=== PATIENT | female | born 1960 | race Caucasian/White ===

== ENCOUNTER 2017-12-17 17:35 | Inpatient (IN) | payer OTHER, MEDICARE ==
[~2017-12-17] VITALS: Ht 165.1 cm; Wt 62.0 kg
[~2017-12-17 17:35] MED LIST: ANAS1 PO; ATOR40TA16 PO; BUPR150T5 PO; CLON0.5T PO; ESCI20TA PO; LEVO75TA3 PO; LISI-519 PO; OMEP40CA2 PO
[2017-12-17 17:40] VITALS: BP 164/91; PULSE 89; RESP 18; TEMP 98; O2SAT 94
[2017-12-17] MEDS ORDERED: FENT75DI T-DERMAL (17:52)
[2017-12-17] MEDS ORDERED: ONDANSETRON HCL 4 MG/2 ML VIAL IV PUSH ONE (18:00)
[2017-12-17] MEDS ORDERED: SODIUM CHLOR 0.9% 250 ML INJ 250 ML IV ONE (18:00)
[2017-12-17 18:15] LABS: HEMATOCRIT 46.5 % (35.0-46.0); HEMOGLOBIN 16.1 GM/DL (11.6-15.3); MEAN CELL VOLUME 86.1 FL (80.0-100.0); MEAN CORPUSCULAR HEMOGLOBIN 29.9 PG (27.0-34.0); MEAN CORPUSCULAR HGB CONC 34.7 % (32.0-36.0); MEAN PLATELET VOLUME 7.6 FL (7.0-11.0); PLATELET COUNT 209 TH/MM3 (150-450); RED CELL DISTRIBUTION WIDTH 12.6 % (11.6-17.2); WHITE BLOOD COUNT 17.7 TH/MM3 (4.0-11.0)
--- NOTE | 2017-12-17 18:20 | PD ---
HPI Chief Complaint: GI Complaint Time Seen by Provider: 17:54 Travel History International Travel<30 days: No Contact w/Intl Traveler<30days: No Traveled to known affect area: No History of Present Illness HPI This is a 57-year-old female who presented to the ER complaining of nausea and vomiting since this afternoon. Patient denies any diarrhea there is no fever or chills or night sweats. Patient denies eating any unusual food and says that this afternoon she started feeling nauseated and started vomiting. Patient is on fentanyl patch every 3 days for chronic back pain. She denies any drugs or alcohol although reports smoking half a pack a day. vomitus is nonbloody nonbilious non projectile. Denies any abdominal pain no chest pain or shortness of breath. PFSH Past Medical History Anxiety: Yes Depression: Yes Cancer: Yes High Cholesterol: Yes GERD: Yes Hypertension: Yes Thyroid Disease: Yes Influenza Vaccination: No ?: Not Social History Alcohol Use: No Tobacco Use: Yes Substance Use: No Allergies-Medications (Allergen,Severity, Reaction): Coded Allergies: No Known Allergies (Unverified Adverse Reaction, Unknown, 12/17/17) Reported Meds & Prescriptions Reported Meds & Active Scripts Active Clonazepam 0.5 Mg Tab 0.5 Mg PO TID Atorvastatin (Atorvastatin Calcium) 40 Mg Tab 40 Mg PO HS Arimidex (Anastrozole) 1 Mg Tab 1 Mg PO DAILY Escitalopram (Escitalopram Oxalate) 20 Mg Tab 20 Mg PO DAILY Omeprazole 40 Mg Cap 40 Mg PO DAILY Lisinopril 5 Mg Tab 5 Mg PO DAILY Levothyroxine (Levothyroxine Sodium) 75 Mcg Tab 75 Mcg PO DAILY Bupropion HCl ER 12 HR (Bupropion HCl) 150 Mg Tab 150 Mg PO BID Reported Fentanyl Patch 72 HR (Fentanyl) 75 Mcg/Hr Patch 75 Mcg T-DERMAL Q72H Remove old patch when new one placed. Review of Systems Except as stated in HPI: all other systems reviewed are Neg Physical Exam Narrative GENERAL: Alert and oriented 3 no acute distress. SKIN: Focused skin assessment warm/dry. HEAD: Atraumatic. Normocephalic. EYES: Pupils equal and round. No scleral icterus. No injection or drainage. ENT: No nasal bleeding or discharge. Mucous membranes pink and moist. NECK: Trachea midline. No JVD. CARDIOVASCULAR: Regular rate and rhythm. No murmur appreciated. RESPIRATORY: No accessory muscle use. Clear to auscultation. Breath sounds equal bilaterally. GASTROINTESTINAL: Abdomen soft, non-tender, nondistended. Hepatic and splenic margins not palpable. MUSCULOSKELETAL: No obvious deformities. No clubbing. No cyanosis. No edema. NEUROLOGICAL: Awake and alert. No obvious cranial nerve deficits. Motor grossly within normal limits. Normal speech. PSYCHIATRIC: Appropriate mood and affect; insight and judgment normal. Data Data Last Documented VS Vital Signs Date Time Temp Pulse Resp B/P (MAP) Pulse Ox O2 Delivery O2 Flow Rate FiO2 12/17/17 17:40 98.0 89 18 164/91 (115) 94 Orders Orders Complete Blood Count With Diff (12/17/17 17:54) Comprehensive Metabolic Panel (12/17/17 17:54) Urinalysis - C+S If Indicated (12/17/17 17:54) Ondansetron Inj (Zofran Inj) (12/17/17 18:00) Sodium Chlor 0.9% 250 Ml Inj (Ns 250 Ml (12/17/17 18:00) Ct Abd/Pel W Iv Contrast(Rout) (12/17/17 ) Labs Laboratory Tests Test 12/17/17 18:04 12/17/17 18:32 White Blood Count 17.7 TH/MM3 Red Blood Count 5.40 MIL/MM3 Hemoglobin 16.1 GM/DL Hematocrit 46.5 % Mean Corpuscular Volume 86.1 FL Mean Corpuscular Hemoglobin 29.9 PG Mean Corpuscular Hemoglobin Concent 34.7 % Red Cell Distribution Width 12.6 % Platelet Count 209 TH/MM3 Mean Platelet Volume 7.6 FL CBC Comment AUTO DIFF Differential Total Cells Counted 100 Neutrophils % (Manual) 79 % Band Neutrophils % 9 % Lymphocytes % 5 % Monocytes % 7 % Neutrophils # (Manual) 15.6 TH/MM3 Differential Comment FINAL DIFF MANUAL Platelet Estimate NORMAL Platelet Morphology Comment NORMAL Blood Urea Nitrogen 11 MG/DL Creatinine 0.84 MG/DL Random Glucose 133 MG/DL Total Protein 8.3 GM/DL Albumin 3.7 GM/DL Calcium Level 8.7 MG/DL Alkaline Phosphatase 138 U/L Aspartate Amino Transf (AST/SGOT) 16 U/L Alanine Aminotransferase (ALT/SGPT) 13 U/L Total Bilirubin 0.5 MG/DL Sodium Level 136 MEQ/L Potassium Level 3.4 MEQ/L Chloride Level 100 MEQ/L Carbon Dioxide Level 26.8 MEQ/L Anion Gap 9 MEQ/L Estimat Glomerular Filtration Rate 70 ML/MIN Urine Color YELLOW Urine Turbidity CLEAR Urine pH 5.0 Urine Specific [place] 1.020 Urine Protein TRACE mg/dL Urine Glucose (UA) NEG mg/dL Urine Ketones NEG mg/dL Urine Occult Blood MOD Urine Nitrite NEG Urine Bilirubin NEG Urine Urobilinogen 0.2 MG/DL Urine Leukocyte Esterase NEG MDM Medical Decision Making Medical Screen Exam Complete: Yes Emergency Medical Condition: Yes Differential Diagnosis Gastroenteritis, opiates withdrawal. Narrative Course Pending PET scan will be signed to the next shift. Pending disposition. Diagnosis Primary Impression: Abdominal pain Condition: Stable Gigi Fernnado MD Dec 17, 2017 18:20
[2017-12-17 18:25] LABS: CHLORIDE 100 MEQ/L (98-107); SODIUM (NA) 136 MEQ/L (136-145)
[2017-12-17 18:28] LABS: ALBUMIN 3.7 GM/DL (3.4-5.0); BICARBONATE 26.8 MEQ/L (21.0-32.0); BLOOD UREA NITROGEN 11 MG/DL (7-18); CALCIUM 8.7 MG/DL (8.5-10.1); GLUCOSE,RANDOM 133 MG/DL (74-106)
[2017-12-17 18:31] LABS: ALT (GPT) 13 U/L (10-53); AST (GOT) 16 U/L (15-37); CREATININE 0.84 MG/DL (0.50-1.00); GLOMERULAR FILTRATION RATE 70 ML/MIN (>89)
[2017-12-17 18:33] LABS: TOTAL BILIRUBIN ADULT 0.5 MG/DL (0.2-1.0); TOTAL PROTEIN 8.3 GM/DL (6.4-8.2)
[2017-12-17 18:34] LABS: ALKALINE PHOSPHATASE 138 U/L (45-117)
[2017-12-17 18:48] LABS: BANDS 9 % (0-6); LYMPHOCYTES 5 % (9-44); MONOCYTES 7 % (0-8); NEUTROPHIL # MANUAL DIFF 15.6 TH/MM3 (1.8-7.7); POLYS (SEG NEUTROPHILS) 79 % (16-70)
[2017-12-17 18:48] LABS: BILIRUBIN, URINE NEG (NEG); BLOOD, URINE MOD (NEG); GLUCOSE,URINE NEG (NEG); KETONE, URINE NEG (NEG); NITRITE,URINE NEG (NEG); URINE COLOR YELLOW (YELLW/STRAW); URINE LEUKOCYTE ESTERASE NEG (NEG)
[2017-12-17 18:52] LABS: BACTERIA, URINE FEW /hpf; SQUAMOUS EPITHELIAL CELL URINE > 8 /hpf (0-5)
[2017-12-17 19:05] VITALS: BP 163/88; PULSE 84; RESP 20; O2SAT 90
[2017-12-17] MEDS ORDERED: IOHEXOL 350 MG/ML 10 ML VIAL (for RAD DIAG) IVCONTRAST ONE (19:18)
--- NOTE | 2017-12-17 19:30 | RADRPT ---
EXAM DATE/TIME: 12/17/2017 19:07 [facility] COMPARISON: No previous studies available for comparison. INDICATIONS : Nausea, vomiting. IV CONTRAST: 100 cc Omnipaque 350 (iohexol) IV ORAL CONTRAST: No oral contrast ingested. RADIATION DOSE: 7.75 CTDIvol (mGy) MEDICAL HISTORY : Gastroesophageal reflux disease. Hypertension. SURGICAL HISTORY : None. ENCOUNTER: Initial ACUITY: 1 day PAIN SCALE: 6/10 LOCATION: abdomen TECHNIQUE: Volumetric scanning of the abdomen and pelvis was performed. Using automated exposure control and ad justment of the mA and/or kV according to patient size, radiation dose was kept as low as reasonably achievable to obtain optimal diagnostic quality images. DICOM format image data is available electro nically for review and comparison. FINDINGS: LOWER LUNGS: 1.4 cm oval infiltrate with air bronchograms in the lower lateral right lung. No evidence of pleural effusion. Left lower lung is clear. LIVER: Homogeneous density to the liver. There is mild intrahepatic biliary ductal dilatation near the port a and the extrahepatic biliary system is dilated with the common hepatic duct measuring 1.4 cm and th e common bile duct measuring 1.3 cm, with dilation down to the distal common duct. There is a 1.3 cm peripherally calcified gallstone near the neck. The gallbladder is mildly distended without evidenc e of gallbladder wall thickening or pericholecystic fluid. SPLEEN: Normal size without lesion. PANCREAS: Within normal limits. KIDNEYS: Normal in size and shape. There is no mass, stone or hydronephrosis. ADRENAL GLANDS: Within normal limits. VASCULAR: There is no aortic aneurysm. BOWEL/MESENTERY: No dilated loops of small or large bowel was stopped moderate amount of stool in the rectum and dista l sigmoid colon. ABDOMINAL WALL: Within normal limits. RETROPERITONEUM: There is no lymphadenopathy. BLADDER: No wall thickening or mass. REPRODUCTIVE: Uterus is normal size. Mild amount of free fluid in the left adnexa free fluid in the cul-de-sac.. INGUINAL: There is no lymphadenopathy or hernia. MUSCULOSKELETAL: Mild curvature of the lumbar spine convex towards the left. No lytic lesions seen. CONCLUSION: 1. Abnormal appearance the biliary tree with intra-and extrahepatic biliary ductal dilatation and a 1 .4 cm calcified stone near the neck of the gallbladder. 2. Focal free fluid in the left adnexal region. 3. Moderate amount of stool in the rectum and sigmoid without dilated loops of small bowel. 4. Focal opacity in the lateral right lung does have some air bronchograms suggesting a focal infiltr ate. Sean Neves MD on December 17, 2017 at 19:22 Board Certified Radiologist. This report was verified electronically.
--- NOTE | 2017-12-17 19:34 | PD ---
Physical Exam Time Seen by Provider: 19:[address] Tanner if this patient with me to check the results of the CT scan and make a disposition. Data Data Last Documented VS Vital Signs Date Time Temp Pulse Resp B/P (MAP) Pulse Ox O2 Delivery O2 Flow Rate FiO2 12/17/17 17:40 98.0 89 18 164/91 (115) 94 Orders Orders Complete Blood Count With Diff (12/17/17 17:54) Comprehensive Metabolic Panel (12/17/17 17:54) Urinalysis - C+S If Indicated (12/17/17 17:54) Ondansetron Inj (Zofran Inj) (12/17/17 18:00) Sodium Chlor 0.9% 250 Ml Inj (Ns 250 Ml (12/17/17 18:00) Ct Abd/Pel W Iv Contrast(Rout) (12/17/17 ) Urine Culture (12/17/17 18:32) Iohexol 350 Inj (Omnipaque 350 Inj) (12/17/17 19:18) Piperacil-Tazo 3.375 Gm Premix (Zosyn 3. (12/17/17 19:45) Chest, Pa & Lat (12/17/17 19:44) Arterial Blood Gas (Abg) (12/17/17 19:44) Ondansetron Inj (Zofran Inj) (12/17/17 20:00) Morphine Inj (Morphine Inj) (12/17/17 20:00) Admit Order (Ed Use Only) (12/17/17 19:50) Labs Laboratory Tests Test 12/17/17 18:04 12/17/17 18:32 White Blood Count 17.7 TH/MM3 Red Blood Count 5.40 MIL/MM3 Hemoglobin 16.1 GM/DL Hematocrit 46.5 % Mean Corpuscular Volume 86.1 FL Mean Corpuscular Hemoglobin 29.9 PG Mean Corpuscular Hemoglobin Concent 34.7 % Red Cell Distribution Width 12.6 % Platelet Count 209 TH/MM3 Mean Platelet Volume 7.6 FL CBC Comment AUTO DIFF Differential Total Cells Counted 100 Neutrophils % (Manual) 79 % Band Neutrophils % 9 % Lymphocytes % 5 % Monocytes % 7 % Neutrophils # (Manual) 15.6 TH/MM3 Differential Comment FINAL DIFF MANUAL Platelet Estimate NORMAL Platelet Morphology Comment NORMAL Blood Urea Nitrogen 11 MG/DL Creatinine 0.84 MG/DL Random Glucose 133 MG/DL Total Protein 8.3 GM/DL Albumin 3.7 GM/DL Calcium Level 8.7 MG/DL Alkaline Phosphatase 138 U/L Aspartate Amino Transf (AST/SGOT) 16 U/L Alanine Aminotransferase (ALT/SGPT) 13 U/L Total Bilirubin 0.5 MG/DL Sodium Level 136 MEQ/L Potassium Level 3.4 MEQ/L Chloride Level 100 MEQ/L Carbon Dioxide Level 26.8 MEQ/L Anion Gap 9 MEQ/L Estimat Glomerular Filtration Rate 70 ML/MIN Urine Collection Type CLEAN CATCH Urine Color YELLOW Urine Turbidity CLEAR Urine pH 5.0 Urine Specific [place] 1.020 Urine Protein TRACE mg/dL Urine Glucose (UA) NEG mg/dL Urine Ketones NEG mg/dL Urine Occult Blood MOD Urine Nitrite NEG Urine Bilirubin NEG Urine Urobilinogen 0.2 MG/DL Urine Leukocyte Esterase NEG Urine RBC 4-9 /hpf Urine WBC 9-14 /hpf Urine Squamous Epithelial Cells > 8 /hpf Urine Bacteria FEW /hpf Microscopic Urinalysis Comment CULTURE INDICATED Urine Collection Time 18:32 MDM Medical Record Reviewed: Yes Supervised Visit with JAI: No Interpretation(s) The CT abdomen/pelvis with IV contrast shows abnormal appearance of the biliary tree with intra-and extra hepatic biliary ductal dilatation and a 1.4 calcified stone near the neck of the gallbladder. Also noted is focal free fluid in the left adnexal region and moderate amount of stool in the rectum and sigmoid without dilated loops of small bowel and a focal opacity in the lateral right lung with air bronchograms suggesting a focal infiltrate. The CBC shows a white count of 17,700 with a hemoglobin of 16.1 and hematocrit of 46.5 with 79 polys and 9 bands. The complete metabolic profile shows a GFR of 70, glucose 133, total protein 8.3, alkaline phosphatase 138 with potassium of 3.4 but is otherwise unremarkable. Urinalysis shows moderate blood, 9-14 white cells with 4-9 red cells and few bacteria and culture is indicated. Differential Diagnosis Pneumonia, urinary tract infection, cholecystitis, cholelithiasis with colic, common duct stone, pancreatitis, electrolyte disorder, dehydration Narrative Course The CT scan suggest a common duct stone as well as possible pneumonia. The urine shows a urinary tract infection. She does have a leukocytosis. Most of her pain is in the right upper quadrant. Because of the patient's multiple problems, and the need for possible multiple consultations, the patient will be transferred to [facility]. Physician Communication Physician Communication I discussed the patient with Dr. Yennifer Franco and Dr. Basim Arreguin. The patient will be admitted to Dr. Puri of the [facility] and surgery will be consulting. Diagnosis Primary Impression: Common bile duct stone Additional Impressions: Right lower lobe pneumonia Urinary tract infection Admitting Information Admitting Physician Requests: Admit Condition: Stable Hank Christensen MD Dec 17, 2017 19:34
[2017-12-17] MEDS ORDERED: PIPERACIL-TAZO 3.375 GM PREMIX 50 ML IV ONE (19:45)
[2017-12-17 20:00] VITALS: BP 148/90; PULSE 82; RESP 20; O2SAT 98
[2017-12-17] MEDS: PIPERACIL-TAZO 4.5 GM PREMIX 100 ML IV SCH (20:00)
[2017-12-17] MEDS ORDERED: MAGNESIUM HYDROXIDE SUSP 30 ML CUP PO PRN (20:00)
[2017-12-17] MEDS ORDERED: MORPHINE SULFATE 4 MG/ML INJ IV PUSH ONE (20:00)
[2017-12-17] MEDS ORDERED: SENNOSIDES 8.6 MG TAB PO PRN (20:00)
[2017-12-17] MEDS ORDERED: ONDANSETRON HCL 4 MG/2 ML VIAL IV ONE (20:00)
[2017-12-17] MEDS ORDERED: NALOXONE HCL 0.4 MG/ML AMP IV PUSH PRN (20:00)
[2017-12-17] MEDS ORDERED: ACETAMINOPHEN 650 MG SUPP RECTAL PRN (20:00)
[2017-12-17] MEDS ORDERED: SODIUM CHLOR 0.9% 1000 ML INJ 1,000 ML IV SCH (20:00)
[2017-12-17] MEDS ORDERED: BISACODYL 10 MG SUPP RECTAL PRN (20:00)
[2017-12-17] MEDS ORDERED: MORPHINE SULFATE 2 MG/ML INJ IV PUSH PRN (20:15)
[2017-12-17] MEDS ORDERED: RESP: ALBUTEROL 2.5 MG/IPRATROPIUM 0.5 MG NEB (PRN) NEB (20:15)
[2017-12-17] MEDS: AZITHROMYCIN INJ 500 MG in SODIUM CHLOR 0.9% 250 ML INJ 250 ML IV SCH (20:24)
--- NOTE | 2017-12-17 20:32 | RADRPT ---
EXAM DATE/TIME: 12/17/2017 20:14 [facility] COMPARISON: No previous studies available for comparison. INDICATIONS : Shortness of breath MEDICAL HISTORY : Gastroesophageal reflux disease. Hypertension. SURGICAL HISTORY : None. ENCOUNTER: Initial ACUITY: 1 day PAIN SCORE: 0/10 LOCATION: Bilateral chest FINDINGS: PA and lateral views of the chest demonstrate the lungs to be symmetrically aerated without evidence of mass, infiltrate or effusion. No evidence of pneumothorax. The cardiomediastinal contours are unr emarkable. Deformity of the lower lateral right ribs suggest old rib fractures.. CONCLUSION: The lungs are clear. Sean Neves MD on December 17, 2017 at 20:30 Board Certified Radiologist. This report was verified electronically.
[2017-12-17 21:00] VITALS: BP 155/88; PULSE 88; RESP 20; O2SAT 95
[2017-12-17] MEDS ORDERED: buPROPion HCL 150 MG SUSTAINED RELEASE TAB PO SCH (21:00)
[2017-12-17 21:10] VITALS: O2SAT 94
[2017-12-17] MEDS: RESP: ALBUTEROL 2.5 MG/IPRATROPIUM 0.5 MG NEB (SCH) NEB (21:11)
[2017-12-17] MEDS: MORPHINE SULFATE 4 MG/ML INJ IV PUSH PRN (21:51)
[2017-12-17] MEDS: buPROPion HCL 150 MG SUSTAINED RELEASE TAB PO SCH (21:52)
[2017-12-17] MEDS: ATORVASTATIN 40 MG TAB PO SCH (21:53)
[2017-12-17 22:49] VITALS: BP 145/90
[2017-12-18] VITALS (15 sets, daily range): BP systolic 95–145; BP diastolic 55–87; PULSE 90–107; RESP 16–22; TEMP 97.8–100.6; O2SAT 90–95
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
[2017-12-18] MEDS ORDERED: HYDROmorphone HCL PF 2 MG/ML VIAL IV ONE (00:45)
[2017-12-18] MEDS: SODIUM CHLORIDE 0.9% FLUSH 10 ML FLUSH IV FLUSH SCH ×3 (01:00→21:00)
[2017-12-18] MEDS: PIPERACIL-TAZO 4.5 GM PREMIX 100 ML IV SCH ×4 (01:05→21:39)
[2017-12-18] MEDS: RESP: ALBUTEROL 2.5 MG/IPRATROPIUM 0.5 MG NEB (SCH) NEB ×4 (03:05→19:44)
[2017-12-18] MEDS ORDERED: ONDANSETRON HCL 4 MG/2 ML VIAL IV PUSH PRN (03:15)
[2017-12-18] MEDS: MORPHINE SULFATE 4 MG/ML INJ IV PUSH PRN ×4 (04:47→15:52)
[2017-12-18 05:26] LABS: AUTOMATED NEUTROPHIL # 23.9 TH/MM3 (1.8-7.7); BASOPHIL % 0.1 % (0.0-2.0); HEMATOCRIT 45.3 % (35.0-46.0); HEMOGLOBIN 15.5 GM/DL (11.6-15.3); LYMPH % 3.3 % (9.0-44.0); LYMPHOCYTE # 0.9 TH/MM3 (1.0-4.8); MEAN CELL VOLUME 85.4 FL (80.0-100.0); MEAN CORPUSCULAR HEMOGLOBIN 29.3 PG (27.0-34.0); MEAN CORPUSCULAR HGB CONC 34.3 % (32.0-36.0); MEAN PLATELET VOLUME 7.8 FL (7.0-11.0); MONOCYTE # 1.6 TH/MM3 (0-0.9); NEUT % 90.6 % (16.0-70.0); PLATELET COUNT 208 TH/MM3 (150-450); RED CELL DISTRIBUTION WIDTH 13.1 % (11.6-17.2); WHITE BLOOD COUNT 26.4 TH/MM3 (4.0-11.0)
[2017-12-18 05:52] LABS: ALBUMIN 3.3 GM/DL (3.4-5.0); ALT (GPT) 15 U/L (10-53); BICARBONATE 28.3 MEQ/L (21.0-32.0); BLOOD UREA NITROGEN 11 MG/DL (7-18); CALCIUM 8.7 MG/DL (8.5-10.1); CHLORIDE 98 MEQ/L (98-107); CREATININE 0.76 MG/DL (0.50-1.00); GLOMERULAR FILTRATION RATE 79 ML/MIN (>89); GLUCOSE,RANDOM 127 MG/DL (74-106); SODIUM (NA) 135 MEQ/L (136-145)
[2017-12-18 05:55] LABS: ALKALINE PHOSPHATASE 116 U/L (45-117); AST (GOT) 16 U/L (15-37); TOTAL PROTEIN 7.7 GM/DL (6.4-8.2)
[2017-12-18] MEDS: REMOVE OLD PATCH-FENTANYL T-DERMAL SCH (06:00)
[2017-12-18] MEDS: LEVOTHYROXINE SODIUM 75 MCG TAB PO SCH (06:06)
[2017-12-18] MEDS: fentaNYL 75 MCG/HR PATCH T-DERMAL SCH (06:16)
[2017-12-18] MEDS: LISINOPRIL 5 MG TAB PO SCH (08:27)
[2017-12-18] MEDS: buPROPion HCL 150 MG SUSTAINED RELEASE TAB PO SCH ×2 (08:27→21:37)
[2017-12-18] MEDS: ANASTROZOLE 1 MG TAB PO SCH (08:27)
[2017-12-18] MEDS: DOCUSATE SODIUM 100 MG CAP PO SCH ×2 (08:27→21:37)
[2017-12-18] MEDS: PANTOPRAZOLE SOD 40 MG DELAYED RELEASE TAB PO SCH (08:27)
[2017-12-18] MEDS: ESCITALOPRAM OXALATE 20 MG TAB PO SCH (08:28)
[2017-12-18] MEDS ORDERED: ACETAMINOPHEN 325 MG TAB PO PRN (08:45)
[2017-12-18] MEDS ORDERED: clonazePAM 0.5 MG TAB PO SCH (09:00)
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
[2017-12-18] MEDS: NS + KCL 20 MEQ INJ 1,000 ML IV SCH ×2 (09:37→18:41)
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
[2017-12-18] MEDS: SODIUM CHLORIDE 0.9% FLUSH 10 ML FLUSH IV FLUSH PRN (12:21)
[2017-12-18] MEDS ORDERED: LORazepam 2 MG/ML VIAL IV PUSH PRN (12:30)
[2017-12-18] MEDS ORDERED: POTASSIUM CHLORIDE 10 MEQ CONTROLLED RELEASE TAB PO ONE ×2 (15:30→19:00)
[2017-12-18] MEDS ORDERED: POTASSIUM CHLORIDE 20 MEQ CONTROLLED RELEASE TAB PO ONE (15:30)
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
--- NOTE | 2017-12-18 16:05 | RADRPT ---
EXAM DATE/TIME: 12/18/2017 15:10 [facility] COMPARISON: CT ABDOMEN & PELVIS W CONTRAST, December 17, 2017, 19:07. INDICATIONS : Abdominal pain. MEDICAL HISTORY : Hypertension. Carcinoma, breast. SURGICAL HISTORY : Hysterectomy. MASTECTOMY ENCOUNTER: Subsequent ACUITY: 2 day PAIN SCORE: 8/10 LOCATION: Bilateral upper quadrant ABDOMEN TECHNIQUE: Multiplanar, multisequence magnetic resonance imaging of the abdomen was performed. High-resolution 3D dataset was utilized to reconstruct maximum-intensity projection (MIP) images. FINDINGS: INTRAHEPATIC BILE DUCTS: There is some diffuse dilatation of the biliary tree. EXTRAHEPATIC BILE DUCTS: The common bile duct measures 1.3 cm. No stone or filling defect is identified. GALLBLADDER: There is a gallstone in the gallbladder. There is some thickening of the gallbladder wall. There is s ome nonspecific inflammatory changes along the base of the gallbladder. LIVER: Normal size and signal intensity. No concerning liver lesion is identified on this non-contrast exam. The liver is mildly prominent in size measuring 17 cm. PANCREAS: The main pancreatic duct is normal in size. There is no significant anatomical variant. Signal inte nsity is within normal limits. No mass is visualized on this non-contrast exam. OTHER: The remaining visualized structures demonstrate no acute abnormality on this non-contrast exam. CONCLUSION: 1. There is a gallstone in the base of the gallbladder. The gallbladder appears be somewhat dilated a nd there is thickening of the gallbladder wall with some nonspecific inflammatory changes in the mese nteric fat adjacent to the base of the gallbladder. Cholecystitis would be the primary consideration. 2. The common bile duct is dilated 1.3 cm. There is dilatation of the intrabiliary ducts. These findi ngs would indicate obstruction. Recommend ERCP for further evaluation. Boby Pastor MD on December 18, 2017 at 15:58 Board Certified Radiologist. This report was verified electronically.
[2017-12-18] MEDS: MAGNESIUM SULFATE 1 GM PREMIX 100 ML IV SCH ×2 (17:47→18:41)
[2017-12-18] MEDS ORDERED: NS + KCL 20 MEQ INJ 1,000 ML IV SCH (20:00)
[2017-12-18 21:35] LABS: INTERNATIONAL NORMALIZED RATIO 1.4 RATIO; PROTHROMBIN TIME - PATIENT 14.3 SEC (9.8-11.6)
[2017-12-18] MEDS: ATORVASTATIN 40 MG TAB PO SCH (21:37)
[2017-12-18] MEDS: AZITHROMYCIN INJ 500 MG in SODIUM CHLOR 0.9% 250 ML INJ 250 ML IV SCH (21:38)
[2017-12-19] VITALS (12 sets, daily range): BP systolic 92–161; BP diastolic 55–101; PULSE 90–98; RESP 17–18; TEMP 97–100.5; O2SAT 91–96
[2017-12-19] MEDS: NS + KCL 20 MEQ INJ 1,000 ML IV SCH ×3 (02:10→23:17)
[2017-12-19] MEDS: PIPERACIL-TAZO 4.5 GM PREMIX 100 ML IV SCH ×4 (02:10→21:36)
[2017-12-19] MEDS: RESP: ALBUTEROL 2.5 MG/IPRATROPIUM 0.5 MG NEB (SCH) NEB ×3 (03:21→21:47)
[2017-12-19] MEDS ORDERED: POVIDONE IODINE 5% (ANTISEPSIS KIT) 4 APPLICATIONS EACH NARE PRN (04:15)
[2017-12-19] MEDS ORDERED: LACTATED RINGER'S 1000 ML IV PRN (04:15)
[2017-12-19] MEDS ORDERED: SODIUM CHLORID 0.9% 500 ML IV PRN (04:15)
[2017-12-19] MEDS ORDERED: CHLORHEXIDINE GLUCONATE 2 % 1 PACK (2 CLOTHS) TOPICAL PRN (04:15)
[2017-12-19] MEDS: LEVOTHYROXINE SODIUM 75 MCG TAB PO SCH (06:11)
[2017-12-19] MEDS: MORPHINE SULFATE 4 MG/ML INJ IV PUSH PRN ×4 (07:47→21:38)
[2017-12-19] MEDS: SODIUM CHLORIDE 0.9% FLUSH 10 ML FLUSH IV FLUSH SCH ×2 (07:57→20:27)
[2017-12-19] MEDS: PANTOPRAZOLE SOD 40 MG DELAYED RELEASE TAB PO SCH (07:57)
[2017-12-19] MEDS: DOCUSATE SODIUM 100 MG CAP PO SCH (07:57)
[2017-12-19] MEDS: ESCITALOPRAM OXALATE 20 MG TAB PO SCH (07:57)
[2017-12-19] MEDS: buPROPion HCL 150 MG SUSTAINED RELEASE TAB PO SCH ×2 (07:57→20:26)
[2017-12-19] MEDS: ANASTROZOLE 1 MG TAB PO SCH (07:57)
[2017-12-19] MEDS: LISINOPRIL 5 MG TAB PO SCH (07:58)
[2017-12-19 08:11] LABS: AUTOMATED NEUTROPHIL # 21.9 TH/MM3 (1.8-7.7); BASOPHIL % 0.1 % (0.0-2.0); HEMATOCRIT 40.1 % (35.0-46.0); HEMOGLOBIN 13.6 GM/DL (11.6-15.3); LYMPH % 3.2 % (9.0-44.0); LYMPHOCYTE # 0.8 TH/MM3 (1.0-4.8); MEAN CELL VOLUME 86.5 FL (80.0-100.0); MEAN CORPUSCULAR HEMOGLOBIN 29.3 PG (27.0-34.0); MEAN CORPUSCULAR HGB CONC 33.9 % (32.0-36.0); MONO % 5.8 % (0.0-8.0); MONOCYTE # 1.4 TH/MM3 (0-0.9); NEUT % 90.9 % (16.0-70.0); PLATELET COUNT 142 TH/MM3 (150-450); RED BLOOD COUNT 4.64 MIL/MM3 (4.00-5.30); RED CELL DISTRIBUTION WIDTH 12.8 % (11.6-17.2)
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
[2017-12-19 08:35] LABS: BICARBONATE 26.9 MEQ/L (21.0-32.0); CALCIUM 7.9 MG/DL (8.5-10.1); CREATININE 0.65 MG/DL (0.50-1.00); MAGNESIUM 2.1 MG/DL (1.5-2.5)
[2017-12-19] MEDS: DOCUSATE SODIUM 50 MG/SENNA 8.6 MG TAB PO SCH ×2 (09:00→20:26)
--- NOTE | 2017-12-19 11:11 | HHI.PR ---
cc: Pipe Jackson MD Subjective Subjective Notes Resting in bed Reports abdominal pain is better today but not 100% gone Objective Vitals/I&O Vital Signs Date Time Temp Pulse Resp B/P (MAP) Pulse Ox O2 Delivery O2 Flow Rate FiO2 12/19/17 08:24 95 21 12/19/17 08:00 Nasal Cannula 2.00 12/19/17 07:52 18 12/19/17 07:30 98.3 91 102/65 (77) 111/69 (83) Labs Laboratory Tests Test 12/18/17 20:15 12/19/17 06:00 Prothrombin Time 14.3 Prothromb Time International Ratio 1.4 Activated Partial Thromboplast Time 33.6 White Blood Count 24.0 Red Blood Count 4.64 Hemoglobin 13.6 Hematocrit 40.1 Mean Corpuscular Volume 86.5 Mean Corpuscular Hemoglobin 29.3 Mean Corpuscular Hemoglobin Concent 33.9 Red Cell Distribution Width 12.8 Platelet Count 142 Mean Platelet Volume 8.0 Neutrophils (%) (Auto) 90.9 Lymphocytes (%) (Auto) 3.2 Monocytes (%) (Auto) 5.8 Eosinophils (%) (Auto) 0.0 Basophils (%) (Auto) 0.1 Neutrophils # (Auto) 21.9 Lymphocytes # (Auto) 0.8 Monocytes # (Auto) 1.4 Eosinophils # (Auto) 0.0 Basophils # (Auto) 0.0 CBC Comment DIFF FINAL Differential Comment Blood Urea Nitrogen 15 Creatinine 0.65 Random Glucose 101 Calcium Level 7.9 Magnesium Level 2.1 Sodium Level 135 Potassium Level 4.4 Chloride Level 101 Carbon Dioxide Level 26.9 Anion Gap 7 Estimat Glomerular Filtration Rate 95 Date/Time Source Procedure Growth Status 12/17/17 20:05 Blood Peripheral Aerobic Blood Culture - Preliminary NO GROWTH IN 2 DAYS Resulted 12/17/17 20:05 Blood Peripheral Anaerobic Blood Culture - Preliminary NO GROWTH IN 2 DAYS Resulted 12/17/17 18:32 Urine Clean Catch Urine Culture - Preliminary IMMATURE GROWTH - REINCUBATE Resulted Radiology Last 48 hours Impressions Chest X-Ray 3/7/18 1944 Signed Impressions: Service Date/Time: Sunday, December 17, 2017 20:14 - CONCLUSION: The lungs are clear. Sean Neves MD Abdomen/Pelvis CT 12/17/17 0000 Signed Impressions: Service Date/Time: Sunday, December 17, 2017 19:07 - CONCLUSION: 1. Abnormal appearance the biliary tree with intra-and extrahepatic biliary ductal dilatation and a 1.4 cm calcified stone near the neck of the gallbladder. 2. Focal free fluid in the left adnexal region. 3. Moderate amount of stool in the rectum and sigmoid without dilated loops of small bowel. 4. Focal opacity in the lateral right lung does have some air bronchograms suggesting a focal infiltrate. Sean Neves MD Cardiovascular: Regular Lungs: Clear Abdomen: Other (RUQ tenderness with palpation ) Extremities: No edema A/P Assessment and Plan 57 year old female with abdominal pain/nausea/vomiting; Pneumonia; UTI; incidental finding of gallstone -Continue GI workup for biliary dilatation---ERCP today ---will follow up results -Liver enzymes pending--- will also follow up on -YAHAIRA -Continue treatment for pneumonia and UTI Mirta Guerin/Exam [employer] Dec 19, 2017 11:11
[2017-12-19] MEDS ORDERED: PROPOFOL 200 MG/20 ML AMP IV ONE (12:00)
[2017-12-19] MEDS ORDERED: LIDOCAINE HCL 1% PF 5 ML SYRINGE OTHER ONE (12:00)
--- NOTE | 2017-12-19 12:58 | GIPROC ---
[facility] [address] [facility] [address] [facility]. [facility], [id number] ERCP PROCEDURE REPORT EXAM DATE: 12/19/2017 PATIENT NAME: Rhea Greene MR #: [id number] BIRTHDATE: 1960 ATTENDING: Christine Casiano MD ORDER #: [id number] [employer]ER: Valentina Mayen and Rekha Muro STATUS: inpatient INDICATIONS: The patient is a 57 yr old female here for an ERCP due to abnormal MRCP PROCEDURE PERFORMED: ERCP with stent placement MEDICATIONS: None and Per Anesthesia. CONSENT: The patient understands the risks and benefits of the procedure and understands that these risks include, but are not limited to: sedation, allergic reaction, infection, perforation and/or bleeding. Alternative means of evaluation and treatment include, among others: physical exam, x-rays, and/or surgical intervention. The patient elects to proceed with this endoscopic procedure. medical equipment was checked for proper function. Hand hygiene and appropriate measures for infection prevention was taken. After the risks, benefits and alternatives of the procedure were thoroughly explained, Informed was verified, confirmed and timeout was successfully executed by the treatment team. With the patient in left semi-prone position, medications were administered intravenously.The Pentax [id number] was passed from the mouth into the esophagus and further advanced from the esophagus into the stomach. From stomach scope was directed to the second portion of the duodenum. Major papilla was aligned with the duodenoscope. The scope position was confirmed fluoroscopically. Rest of the findings/therapeutics are given below. The scope was then completely withdrawn from the patient and the procedure completed. The pulse, BP, and O2 saturation were monitored and documented by the physician and the nursing staff throughout the entire procedure. The patient was cared for as planned according to standard protocol. The patient was then discharged to recovery in stable condition and with appropriate post procedure care. The ampulla was located the second portion of the duodenum. The ampulla appeared normal. There was a dilation of the CBD and common hepatic duct. A smooth short stricture was noted in the distal common bile duct with upstream dilation. Under endoscopic and fluoroscopic guidance, a 10Fr x 5cm plastic stent was placed in the bile duct. ADVERSE EVENT: There were no complications. IMPRESSIONS: 1. Normal appearing ampulla 2. Gradual tappering of the distal common bile duct with upstream diltation, benign appearance. [id number] Biliary stent placed . RECOMMENDATIONS: Liver enzymes REPEAT EXAM: ERCP for stent removal within 3 months Christine Casiano MD eSigned: Christine Casiano MD 12/19/2017 12:58 PM cc:
--- NOTE | 2017-12-19 14:55 | RADRPT ---
EXAM DATE/TIME: 12/19/2017 12:53 [place] COMPARISON: CHEST PA & LAT, December 17, 2017, 20:14. INDICATIONS : Obstruction FLUORO TIME: .49 minutes IMAGE COUNT: ?5 CONTRAST: Instilled by Ordering Physician MEDICAL HISTORY : None. SURGICAL HISTORY : None. ENCOUNTER: Initial ACUITY: 1 day PAIN SCORE: Non-responsive. LOCATION: Abdomen FINDINGS: An ERCP was performed by the ordering physician. The images demonstrate an enlarged common bile duct. Final images demonstrate placement of an interna l biliary stent which is in excellent position. CONCLUSION: ERCP as above. Miguel Smith MD on December 19, 2017 at 14:52 Board Certified Radiologist. This report was verified electronically.
[2017-12-19 17:05] LABS: ALBUMIN 2.5 GM/DL (3.4-5.0); BLOOD UREA NITROGEN 15 MG/DL (7-18); CALCIUM 8.2 MG/DL (8.5-10.1); CHLORIDE 101 MEQ/L (98-107); GLOMERULAR FILTRATION RATE 87 ML/MIN (>89); GLUCOSE,RANDOM 100 MG/DL (74-106); SODIUM (NA) 135 MEQ/L (136-145)
[2017-12-19 17:06] LABS: AST (GOT) 25 U/L (15-37)
[2017-12-19 17:10] LABS: ALKALINE PHOSPHATASE 107 U/L (45-117); ALT (GPT) 12 U/L (10-53); TOTAL PROTEIN 6.3 GM/DL (6.4-8.2)
[2017-12-19] MEDS: ATORVASTATIN 40 MG TAB PO SCH (20:26)
[2017-12-19] MEDS: AZITHROMYCIN INJ 500 MG in SODIUM CHLOR 0.9% 250 ML INJ 250 ML IV SCH (20:27)
[2017-12-19] MEDS: guaiFENesin/DEXTROMETHORPHAN 200 MG/20 MG/10 ML CUP PO PRN (21:36)
[2017-12-20] VITALS (15 sets, daily range): BP systolic 119–152; BP diastolic 79–89; PULSE 86–106; RESP 16–20; TEMP 96.8–100.6; O2SAT 91–95
[2017-12-20] MEDS: MORPHINE SULFATE 4 MG/ML INJ IV PUSH PRN ×5 (00:37→20:54)
[2017-12-20] MEDS: PIPERACIL-TAZO 4.5 GM PREMIX 100 ML IV SCH ×4 (02:47→20:53)
[2017-12-20] MEDS: RESP: ALBUTEROL 2.5 MG/IPRATROPIUM 0.5 MG NEB (SCH) NEB ×4 (03:25→20:45)
[2017-12-20] MEDS: LEVOTHYROXINE SODIUM 75 MCG TAB PO SCH (06:14)
[2017-12-20] MEDS ORDERED: ACETAMINOPHEN/HYDROcodone 325 MG/5 MG TAB PO PRN (06:45)
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
[2017-12-20 06:59] LABS: AUTOMATED NEUTROPHIL # 16.6 TH/MM3 (1.8-7.7); BASOPHIL % 0.1 % (0.0-2.0); HEMATOCRIT 39.7 % (35.0-46.0); HEMOGLOBIN 13.6 GM/DL (11.6-15.3); LYMPH % 3.4 % (9.0-44.0); LYMPHOCYTE # 0.6 TH/MM3 (1.0-4.8); MEAN CELL VOLUME 86.5 FL (80.0-100.0); MEAN CORPUSCULAR HEMOGLOBIN 29.7 PG (27.0-34.0); MEAN CORPUSCULAR HGB CONC 34.3 % (32.0-36.0); MEAN PLATELET VOLUME 8.2 FL (7.0-11.0); MONO % 6.1 % (0.0-8.0); MONOCYTE # 1.1 TH/MM3 (0-0.9); NEUT % 90.4 % (16.0-70.0); PLATELET COUNT 120 TH/MM3 (150-450); RED BLOOD COUNT 4.59 MIL/MM3 (4.00-5.30); RED CELL DISTRIBUTION WIDTH 12.8 % (11.6-17.2); WHITE BLOOD COUNT 18.4 TH/MM3 (4.0-11.0)
[2017-12-20 07:23] LABS: ALBUMIN 2.3 GM/DL (3.4-5.0); ALKALINE PHOSPHATASE 103 U/L (45-117); ALT (GPT) 12 U/L (10-53); AST (GOT) 27 U/L (15-37); BICARBONATE 27.3 MEQ/L (21.0-32.0); BLOOD UREA NITROGEN 8 MG/DL (7-18); CHLORIDE 99 MEQ/L (98-107); GLOMERULAR FILTRATION RATE 128 ML/MIN (>89); GLUCOSE,RANDOM 84 MG/DL (74-106); MAGNESIUM 1.8 MG/DL (1.5-2.5); SODIUM (NA) 134 MEQ/L (136-145); TOTAL BILIRUBIN ADULT 1.3 MG/DL (0.2-1.0); TOTAL PROTEIN 6.3 GM/DL (6.4-8.2)
[2017-12-20] MEDS: LISINOPRIL 5 MG TAB PO SCH (09:05)
[2017-12-20] MEDS: ANASTROZOLE 1 MG TAB PO SCH (09:06)
[2017-12-20] MEDS: PANTOPRAZOLE SOD 40 MG DELAYED RELEASE TAB PO SCH (09:06)
[2017-12-20] MEDS: buPROPion HCL 150 MG SUSTAINED RELEASE TAB PO SCH ×2 (09:06→20:53)
[2017-12-20] MEDS: ESCITALOPRAM OXALATE 20 MG TAB PO SCH (09:06)
[2017-12-20] MEDS: DOCUSATE SODIUM 50 MG/SENNA 8.6 MG TAB PO SCH ×2 (09:06→20:53)
[2017-12-20] MEDS: ACETAMINOPHEN/HYDROcodone 325 MG/7.5 MG TAB PO PRN ×2 (09:07→14:08)
[2017-12-20] MEDS: HEPARIN SODIUM - SQ 10,000 UNITS/ML VIAL SQ SCH ×2 (09:24→20:54)
[2017-12-20] MEDS: SODIUM CHLORIDE 0.9% FLUSH 10 ML FLUSH IV FLUSH SCH ×2 (09:25→20:53)
[2017-12-20 10:04] LABS: BANDS 12 % (0-6); LYMPHOCYTES 9 % (9-44); MONOCYTES 7 % (0-8); NEUTROPHIL # MANUAL DIFF 15.5 TH/MM3 (1.8-7.7); POLYS (SEG NEUTROPHILS) 72 % (16-70)
--- NOTE | 2017-12-20 12:43 | HHI.GIFU ---
Subjective Remarks Still complaining of abdominal pain but less than before. Objective Vitals I&O Vital Signs Date Time Temp Pulse Resp B/P (MAP) Pulse Ox O2 Delivery O2 Flow Rate FiO2 12/20/17 11:52 87 12/20/17 11:10 94 Nasal Cannula 2.00 12/20/17 09:35 90 12/20/17 08:00 100.6 87 18 145/84 (104) 91 12/20/17 04:00 99.2 106 20 137/84 (101) 93 12/20/17 00:00 99.9 93 16 151/85 (107) 95 12/19/17 21:47 95 Nasal Cannula 2.00 12/19/17 20:25 Room Air 12/19/17 20:00 100.5 97 17 161/101 (121) 96 12/19/17 17:12 Nasal Cannula 2.00 12/19/17 16:00 97.0 98 18 154/83 (106) 92 12/19/17 15:28 97.4 94 18 160/83 (108) 93 12/19/17 14:42 94 Nasal Cannula 2.00 12/19/17 13:46 18 12/19/17 13:00 98.0 95 20 137/72 (93) 94 I/O 12/19/17 12/19/17 12/19/17 12/20/17 12/20/17 12/20/17 07:00 15:00 23:00 07:00 15:00 23:00 Intake Total 300 ml 1000 ml 240 ml Output Total 0 ml Balance 300 ml 1000 ml 240 ml Intake Oral 240 ml IV Total 300 ml 1000 ml Estimated Blood Loss 0 ml # Voids 2 # Bowel Movements 0 Laboratory Laboratory Tests Test 12/19/17 15:29 12/20/17 05:48 Blood Urea Nitrogen 15 8 Creatinine 0.70 0.50 Random Glucose 100 84 Total Protein 6.3 6.3 Albumin 2.5 2.3 Calcium Level 8.2 8.0 Alkaline Phosphatase 107 103 Aspartate Amino Transf (AST/SGOT) 25 27 Alanine Aminotransferase (ALT/SGPT) 12 12 Total Bilirubin 1.0 1.3 Sodium Level 135 134 Potassium Level 4.3 3.6 Chloride Level 101 99 Carbon Dioxide Level 27.0 27.3 Anion Gap 7 8 Estimat Glomerular Filtration Rate 87 128 White Blood Count 18.4 Red Blood Count 4.59 Hemoglobin 13.6 Hematocrit 39.7 Mean Corpuscular Volume 86.5 Mean Corpuscular Hemoglobin 29.7 Mean Corpuscular Hemoglobin Concent 34.3 Red Cell Distribution Width 12.8 Platelet Count 120 Mean Platelet Volume 8.2 Neutrophils (%) (Auto) 90.4 Lymphocytes (%) (Auto) 3.4 Monocytes (%) (Auto) 6.1 Eosinophils (%) (Auto) 0.0 Basophils (%) (Auto) 0.1 Neutrophils # (Auto) 16.6 Lymphocytes # (Auto) 0.6 Monocytes # (Auto) 1.1 Eosinophils # (Auto) 0.0 Basophils # (Auto) 0.0 CBC Comment AUTO DIFF Differential Total Cells Counted 100 Neutrophils % (Manual) 72 Band Neutrophils % 12 Lymphocytes % 9 Monocytes % 7 Neutrophils # (Manual) 15.5 Differential Comment FINAL DIFF MANUAL Platelet Estimate LOW Platelet Morphology Comment NORMAL Magnesium Level 1.8 Date/Time Source Procedure Growth Status 12/17/17 20:05 Blood Peripheral Aerobic Blood Culture - Preliminary NO GROWTH IN 3 DAYS Resulted 12/17/17 20:05 Blood Peripheral Anaerobic Blood Culture - Preliminary NO GROWTH IN 3 DAYS Resulted 12/17/17 18:32 Urine Clean Catch Urine Culture - Final 10-50,000 CFU/ML MIXED JATINDER... Complete Physical Exam HEENT: Pupils round and reactive to light; normocephalic; atraumatic; no jaundice. Throat is clear. NECK: Neck is supple, no JVD, no lymphadenopathy. CHEST: Chest is clear to auscultation and percussion. CARDIAC: Regular rate and rhythm with no murmur gallop or rubs. ABDOMEN: Minimal tenderness EXTREMITIES: No clubbing, cyanosis, or edema. SKIN: Normal; no rash; no jaundice. STRATIGRAPHER: No focal deficits; alert and oriented times three. Assessment and Plan Plan ASSESSMENT - abd pain, abnormal imaging - unk etiology. recent onset abd pain, CT showed poss PNA, biliary ductal dilatation, stone in GB neck, moderate stool rectum and sigmoid. LFTs are WNL, does not appear obstructed. PLAN - YAHAIRA - Supportive care - Stent removal in 3 months. Christine Casiano MD Dec 20, 2017 12:43
--- NOTE | 2017-12-20 13:30 | HHI.PR ---
Subjective Subjective Notes pain controlled, tolerating PO, no new c/o Objective Vitals/I&O Vital Signs Date Time Temp Pulse Resp B/P (MAP) Pulse Ox O2 Delivery O2 Flow Rate FiO2 12/20/17 12:00 96.8 86 18 135/89 (104) 94 12/20/17 11:10 Nasal Cannula 2.00 12/19/17 08:24 21 Labs Laboratory Tests Test 12/19/17 15:29 12/20/17 05:48 Blood Urea Nitrogen 15 8 Creatinine 0.70 0.50 Random Glucose 100 84 Total Protein 6.3 6.3 Albumin 2.5 2.3 Calcium Level 8.2 8.0 Alkaline Phosphatase 107 103 Aspartate Amino Transf (AST/SGOT) 25 27 Alanine Aminotransferase (ALT/SGPT) 12 12 Total Bilirubin 1.0 1.3 Sodium Level 135 134 Potassium Level 4.3 3.6 Chloride Level 101 99 Carbon Dioxide Level 27.0 27.3 Anion Gap 7 8 Estimat Glomerular Filtration Rate 87 128 White Blood Count 18.4 Red Blood Count 4.59 Hemoglobin 13.6 Hematocrit 39.7 Mean Corpuscular Volume 86.5 Mean Corpuscular Hemoglobin 29.7 Mean Corpuscular Hemoglobin Concent 34.3 Red Cell Distribution Width 12.8 Platelet Count 120 Mean Platelet Volume 8.2 Neutrophils (%) (Auto) 90.4 Lymphocytes (%) (Auto) 3.4 Monocytes (%) (Auto) 6.1 Eosinophils (%) (Auto) 0.0 Basophils (%) (Auto) 0.1 Neutrophils # (Auto) 16.6 Lymphocytes # (Auto) 0.6 Monocytes # (Auto) 1.1 Eosinophils # (Auto) 0.0 Basophils # (Auto) 0.0 CBC Comment AUTO DIFF Differential Total Cells Counted 100 Neutrophils % (Manual) 72 Band Neutrophils % 12 Lymphocytes % 9 Monocytes % 7 Neutrophils # (Manual) 15.5 Differential Comment FINAL DIFF MANUAL Platelet Estimate LOW Platelet Morphology Comment NORMAL Magnesium Level 1.8 Date/Time Source Procedure Growth Status 12/17/17 20:05 Blood Peripheral Aerobic Blood Culture - Preliminary NO GROWTH IN 3 DAYS Resulted 12/17/17 20:05 Blood Peripheral Anaerobic Blood Culture - Preliminary NO GROWTH IN 3 DAYS Resulted 12/17/17 18:32 Urine Clean Catch Urine Culture - Final 10-50,000 CFU/ML MIXED JATINDER... Complete Radiology Last 48 hours Impressions Chest X-Ray 12/17/17 1944 Signed Impressions: Service Date/Time: Sunday, December 17, 2017 20:14 - CONCLUSION: The lungs are clear. Sean Neves MD Abdomen/Pelvis CT 12/17/17 0000 Signed Impressions: Service Date/Time: Sunday, December 17, 2017 19:07 - CONCLUSION: 1. Abnormal appearance the biliary tree with intra-and extrahepatic biliary ductal dilatation and a 1.4 cm calcified stone near the neck of the gallbladder. 2. Focal free fluid in the left adnexal region. 3. Moderate amount of stool in the rectum and sigmoid without dilated loops of small bowel. 4. Focal opacity in the lateral right lung does have some air bronchograms suggesting a focal infiltrate. Sean Neves MD Cardiovascular: Regular Abdomen: Non-distended, Non-tender A/P Assessment and Plan 57yo female with biliary obstruction, s/p ERCP, benign biliary stricture likely. will defer to GI for management, can follow up with surgery after DC. Adrian Reynolds MD Dec 20, 2017 13:30
[2017-12-20] MEDS: SODIUM CHLORIDE 0.9% FLUSH 10 ML FLUSH IV FLUSH PRN (16:25)
[2017-12-20] MEDS: NS + KCL 20 MEQ INJ 1,000 ML IV SCH (16:25)
[2017-12-20] MEDS: guaiFENesin/DEXTROMETHORPHAN 200 MG/20 MG/10 ML CUP PO PRN (17:25)
[2017-12-20] MEDS: AZITHROMYCIN INJ 500 MG in SODIUM CHLOR 0.9% 250 ML INJ 250 ML IV SCH (20:53)
[2017-12-20] MEDS: ATORVASTATIN 40 MG TAB PO SCH (20:54)
--- NOTE | 2017-12-20 23:08 | EKG ---
Date Performed: 12/19/2017 Time Performed: 06:30:43 PTAGE: 57 years EKG: Sinus rhythm NON-SPECIFIC ST/T WAVE CHANGES NO PREVIOUS TRACING DOCTOR: Arnaldo Olvera Interpretating Date/Time 12/20/2017 23:07:03
[2017-12-21] VITALS (16 sets, daily range): BP systolic 119–139; BP diastolic 72–86; PULSE 74–96; RESP 18–24; TEMP 98–101.2; O2SAT 91–95
[2017-12-21] MEDS: ACETAMINOPHEN/HYDROcodone 325 MG/7.5 MG TAB PO PRN ×4 (00:35→18:04)
[2017-12-21] MEDS: PIPERACIL-TAZO 4.5 GM PREMIX 100 ML IV SCH ×4 (03:01→21:00)
[2017-12-21] MEDS: RESP: ALBUTEROL 2.5 MG/IPRATROPIUM 0.5 MG NEB (SCH) NEB ×4 (03:16→19:57)
[2017-12-21] MEDS: REMOVE OLD PATCH-FENTANYL T-DERMAL SCH (06:00)
[2017-12-21] MEDS: NS + KCL 20 MEQ INJ 1,000 ML IV SCH (06:01)
[2017-12-21] MEDS: LEVOTHYROXINE SODIUM 75 MCG TAB PO SCH (06:15)
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
[2017-12-21] MEDS ORDERED: Vancomycin Consult Pharmacy 1 EA OTHER SCH (08:00)
[2017-12-21] MEDS: SODIUM CHLORIDE 0.9% FLUSH 10 ML FLUSH IV FLUSH SCH ×2 (09:00→21:00)
[2017-12-21 09:04] LABS: BASOPHIL % 0.1 % (0.0-2.0); HEMATOCRIT 35.2 % (35.0-46.0); HEMOGLOBIN 11.9 GM/DL (11.6-15.3); LYMPH % 3.2 % (9.0-44.0); LYMPHOCYTE # 0.5 TH/MM3 (1.0-4.8); MEAN CELL VOLUME 85.2 FL (80.0-100.0); MEAN CORPUSCULAR HEMOGLOBIN 28.9 PG (27.0-34.0); MEAN CORPUSCULAR HGB CONC 33.9 % (32.0-36.0); MEAN PLATELET VOLUME 7.8 FL (7.0-11.0); MONO % 6.7 % (0.0-8.0); PLATELET COUNT 118 TH/MM3 (150-450); RED BLOOD COUNT 4.13 MIL/MM3 (4.00-5.30); RED CELL DISTRIBUTION WIDTH 13.1 % (11.6-17.2); WHITE BLOOD COUNT 14.5 TH/MM3 (4.0-11.0)
--- NOTE | 2017-12-21 09:06 | RADRPT ---
EXAM DATE/TIME: 12/21/2017 08:10 [facility] COMPARISON: No previous studies available for comparison. INDICATIONS : Lower chest pain and shortness of breath. MEDICAL HISTORY : Hypertension. Gastroesophageal reflux disease. SURGICAL HISTORY : None. ENCOUNTER: Initial ACUITY: 2 weeks PAIN SCORE: 4/10 LOCATION: Bilateral lower chest FINDINGS: Lungs are hypoaerated. Consolidating airspace disease is identified in the left base. Right sided rib deformity is characteristic of previous thoracotomy. Heart is mildly enlarged. There is mild central vascular origin. CONCLUSION: 1. Central vascular congestion with left lower lobe airspace disease and mild cardiomegaly. 2. Right-sided rib deformity characteristic of previous thoracotomy. Damon Yuen MD on December 21, 2017 at 9:02 Board Certified Radiologist. This report was verified electronically.
[2017-12-21 09:53] LABS: BANDS 11 % (0-6); LYMPHOCYTES 8 % (9-44); MONOCYTES 7 % (0-8); NEUTROPHIL # MANUAL DIFF 12.3 TH/MM3 (1.8-7.7); POLYS (SEG NEUTROPHILS) 74 % (16-70); TOXIC VACUOLATION PRESENT (NONE SEEN)
[2017-12-21 09:54] LABS: OVALOCYTES 1+ (NORMAL)
[2017-12-21] MEDS ORDERED: VANCOMYCIN INJ 1,250 MG in SODIUM CHLOR 0.9% 250 ML INJ 250 ML IV ONE (10:00)
[2017-12-21] MEDS: DOCUSATE SODIUM 50 MG/SENNA 8.6 MG TAB PO SCH ×2 (10:16→21:00)
[2017-12-21] MEDS: PANTOPRAZOLE SOD 40 MG DELAYED RELEASE TAB PO SCH (10:16)
[2017-12-21] MEDS: ESCITALOPRAM OXALATE 20 MG TAB PO SCH (10:16)
[2017-12-21] MEDS: buPROPion HCL 150 MG SUSTAINED RELEASE TAB PO SCH ×2 (10:16→21:00)
[2017-12-21] MEDS: HEPARIN SODIUM - SQ 10,000 UNITS/ML VIAL SQ SCH ×2 (10:17→21:00)
[2017-12-21] MEDS: guaiFENesin/DEXTROMETHORPHAN 200 MG/20 MG/10 ML CUP PO PRN ×2 (10:17→20:59)
[2017-12-21] MEDS: LISINOPRIL 5 MG TAB PO SCH (10:18)
[2017-12-21] MEDS: fentaNYL 75 MCG/HR PATCH T-DERMAL SCH (10:18)
[2017-12-21] MEDS: ANASTROZOLE 1 MG TAB PO SCH (10:18)
[2017-12-21 10:35] LABS: ALBUMIN 2.1 GM/DL (3.4-5.0); ALKALINE PHOSPHATASE 102 U/L (45-117); ALT (GPT) 13 U/L (10-53); AST (GOT) 25 U/L (15-37); BICARBONATE 27.3 MEQ/L (21.0-32.0); BLOOD UREA NITROGEN 9 MG/DL (7-18); CHLORIDE 100 MEQ/L (98-107); CREATININE 0.45 MG/DL (0.50-1.00); GLOMERULAR FILTRATION RATE 145 ML/MIN (>89); GLUCOSE,RANDOM 82 MG/DL (74-106); MAGNESIUM 1.8 MG/DL (1.5-2.5); SODIUM (NA) 136 MEQ/L (136-145); TOTAL BILIRUBIN ADULT 0.8 MG/DL (0.2-1.0); TOTAL PROTEIN 5.9 GM/DL (6.4-8.2)
--- NOTE | 2017-12-21 11:01 | HHI.PR ---
Subjective Subjective Notes not feeling that well today [id number], c/o abd pain Objective Vitals/I&O Vital Signs Date Time Temp Pulse Resp B/P (MAP) Pulse Ox O2 Delivery O2 Flow Rate FiO2 12/21/17 09:08 92 Nasal Cannula 2.00 12/21/17 08:00 99.2 88 20 138/83 (101) 12/19/17 08:24 21 Labs Laboratory Tests Test 12/21/17 08:37 White Blood Count 14.5 Red Blood Count 4.13 Hemoglobin 11.9 Hematocrit 35.2 Mean Corpuscular Volume 85.2 Mean Corpuscular Hemoglobin 28.9 Mean Corpuscular Hemoglobin Concent 33.9 Red Cell Distribution Width 13.1 Platelet Count 118 Mean Platelet Volume 7.8 Neutrophils (%) (Auto) 90.0 Lymphocytes (%) (Auto) 3.2 Monocytes (%) (Auto) 6.7 Eosinophils (%) (Auto) 0.0 Basophils (%) (Auto) 0.1 Neutrophils # (Auto) 13.0 Lymphocytes # (Auto) 0.5 Monocytes # (Auto) 1.0 Eosinophils # (Auto) 0.0 Basophils # (Auto) 0.0 CBC Comment AUTO DIFF Differential Total Cells Counted 100 Neutrophils % (Manual) 74 Band Neutrophils % 11 Lymphocytes % 8 Monocytes % 7 Neutrophils # (Manual) 12.3 Differential Comment FINAL DIFF MANUAL Toxic Vacuolation PRESENT Platelet Estimate NORMAL Platelet Morphology Comment NORMAL Ovalocytes 1+ Blood Urea Nitrogen 9 Creatinine 0.45 Random Glucose 82 Total Protein 5.9 Albumin 2.1 Calcium Level 8.0 Magnesium Level 1.8 Alkaline Phosphatase 102 Aspartate Amino Transf (AST/SGOT) 25 Alanine Aminotransferase (ALT/SGPT) 13 Total Bilirubin 0.8 Sodium Level 136 Potassium Level 3.2 Chloride Level 100 Carbon Dioxide Level 27.3 Anion Gap 9 Estimat Glomerular Filtration Rate 145 Date/Time Source Procedure Growth Status 12/17/17 20:05 Blood Peripheral Aerobic Blood Culture - Preliminary NO GROWTH IN 3 DAYS Resulted 12/17/17 20:05 Blood Peripheral Anaerobic Blood Culture - Preliminary NO GROWTH IN 3 DAYS Resulted 12/17/17 18:32 Urine Clean Catch Urine Culture - Final 10-50,000 CFU/ML MIXED JATINDER... Complete Radiology Last 48 hours Impressions Chest X-Ray 12/17/17 1944 Signed Impressions: Service Date/Time: Sunday, December 17, 2017 20:14 - CONCLUSION: The lungs are clear. Sean Neves MD Abdomen/Pelvis CT 12/17/17 0000 Signed Impressions: Service Date/Time: Sunday, December 17, 2017 19:07 - CONCLUSION: 1. Abnormal appearance the biliary tree with intra-and extrahepatic biliary ductal dilatation and a 1.4 cm calcified stone near the neck of the gallbladder. 2. Focal free fluid in the left adnexal region. 3. Moderate amount of stool in the rectum and sigmoid without dilated loops of small bowel. 4. Focal opacity in the lateral right lung does have some air bronchograms suggesting a focal infiltrate. Sean Neves MD Lungs: Clear Abdomen: Other (difffuse ttp no rebound) A/P Assessment and Plan 57yo female with biliary obstruction, s/p ERCP, benign biliary stricture likely. plan abx per primary ok for diet trend labs and f/u cx gi for GI for management, follow up with surgery after DC. Osiel Ware MD Dec 21, 2017 11:01
[2017-12-21] MEDS: MORPHINE SULFATE 4 MG/ML INJ IV PUSH PRN ×3 (12:37→20:59)
[2017-12-21] MEDS ORDERED: POTASSIUM CHLORIDE 20 MEQ CONTROLLED RELEASE TAB PO ONE (13:30)
[2017-12-21] MEDS ORDERED: OXYGENDME NAS.CANULA (14:09)
[2017-12-21] MEDS: SODIUM CHLORIDE 0.9% FLUSH 10 ML FLUSH IV FLUSH PRN ×2 (16:37→21:01)
[2017-12-21] MEDS: AZITHROMYCIN INJ 500 MG in SODIUM CHLOR 0.9% 250 ML INJ 250 ML IV SCH (21:00)
[2017-12-21] MEDS: ATORVASTATIN 40 MG TAB PO SCH (21:01)
[2017-12-21] MEDS: VANCOMYCIN INJ 1,250 MG in SODIUM CHLOR 0.9% 250 ML INJ 250 ML IV SCH (22:22)
[2017-12-22] VITALS (9 sets, daily range): BP systolic 121–149; BP diastolic 80–97; PULSE 76–90; RESP 18–24; TEMP 96.8–100.2; O2SAT 92–94
[2017-12-22] MEDS: PIPERACIL-TAZO 4.5 GM PREMIX 100 ML IV SCH ×4 (02:00→20:41)
[2017-12-22] MEDS: RESP: ALBUTEROL 2.5 MG/IPRATROPIUM 0.5 MG NEB (SCH) NEB ×4 (03:07→21:08)
[2017-12-22] MEDS: clonazePAM 0.5 MG TAB PO PRN ×2 (03:24→20:41)
[2017-12-22] MEDS: LEVOTHYROXINE SODIUM 75 MCG TAB PO SCH (06:06)
[2017-12-22 06:55] LABS: AUTOMATED NEUTROPHIL # 10.9 TH/MM3 (1.8-7.7); BASOPHIL % 0.1 % (0.0-2.0); BICARBONATE 29.1 MEQ/L (21.0-32.0); CALCIUM 7.8 MG/DL (8.5-10.1); CREATININE 0.48 MG/DL (0.50-1.00); EOSINOPHIL % 0.1 % (0.0-4.0); HEMATOCRIT 35.2 % (35.0-46.0); HEMOGLOBIN 11.8 GM/DL (11.6-15.3); LYMPH % 4.2 % (9.0-44.0); LYMPHOCYTE # 0.5 TH/MM3 (1.0-4.8); MEAN CELL VOLUME 86.4 FL (80.0-100.0); MEAN CORPUSCULAR HEMOGLOBIN 28.9 PG (27.0-34.0); MEAN CORPUSCULAR HGB CONC 33.5 % (32.0-36.0); MEAN PLATELET VOLUME 7.9 FL (7.0-11.0); MONO % 10.7 % (0.0-8.0); MONOCYTE # 1.4 TH/MM3 (0-0.9); NEUT % 84.9 % (16.0-70.0); PLATELET COUNT 121 TH/MM3 (150-450); RED BLOOD COUNT 4.08 MIL/MM3 (4.00-5.30); RED CELL DISTRIBUTION WIDTH 13.1 % (11.6-17.2); WHITE BLOOD COUNT 12.8 TH/MM3 (4.0-11.0)
[2017-12-22] MEDS: SODIUM CHLORIDE 0.9% FLUSH 10 ML FLUSH IV FLUSH SCH ×2 (09:00→20:33)
[2017-12-22] MEDS: DOCUSATE SODIUM 50 MG/SENNA 8.6 MG TAB PO SCH ×2 (10:31→20:29)
[2017-12-22] MEDS: buPROPion HCL 150 MG SUSTAINED RELEASE TAB PO SCH ×2 (10:31→20:41)
[2017-12-22] MEDS: ESCITALOPRAM OXALATE 20 MG TAB PO SCH (10:31)
[2017-12-22] MEDS: PANTOPRAZOLE SOD 40 MG DELAYED RELEASE TAB PO SCH (10:31)
[2017-12-22] MEDS: LISINOPRIL 5 MG TAB PO SCH (10:32)
[2017-12-22] MEDS: ANASTROZOLE 1 MG TAB PO SCH (10:32)
[2017-12-22] MEDS: guaiFENesin/DEXTROMETHORPHAN 200 MG/20 MG/10 ML CUP PO PRN (10:33)
[2017-12-22] MEDS: HEPARIN SODIUM - SQ 10,000 UNITS/ML VIAL SQ SCH ×2 (10:33→20:30)
[2017-12-22] MEDS: ACETAMINOPHEN/HYDROcodone 325 MG/7.5 MG TAB PO PRN ×3 (10:34→20:29)
[2017-12-22] MEDS: VANCOMYCIN INJ 1,250 MG in SODIUM CHLOR 0.9% 250 ML INJ 250 ML IV SCH ×2 (11:35→22:07)
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
--- NOTE | 2017-12-22 14:47 | HHI.PR ---
cc: Pipe Jackson MD Subjective Subjective Notes Resting in bed Waiting on lunch Reports abdominal pain is getting much better Objective Vitals/I&O Vital Signs Date Time Temp Pulse Resp B/P (MAP) Pulse Ox O2 Delivery O2 Flow Rate FiO2 12/22/17 12:00 96.8 89 18 147/97 (114) 92 12/22/17 09:11 Nasal Cannula 3.00 12/19/17 08:24 21 Labs Laboratory Tests Test 12/22/17 05:15 White Blood Count 12.8 Red Blood Count 4.08 Hemoglobin 11.8 Hematocrit 35.2 Mean Corpuscular Volume 86.4 Mean Corpuscular Hemoglobin 28.9 Mean Corpuscular Hemoglobin Concent 33.5 Red Cell Distribution Width 13.1 Platelet Count 121 Mean Platelet Volume 7.9 Neutrophils (%) (Auto) 84.9 Lymphocytes (%) (Auto) 4.2 Monocytes (%) (Auto) 10.7 Eosinophils (%) (Auto) 0.1 Basophils (%) (Auto) 0.1 Neutrophils # (Auto) 10.9 Lymphocytes # (Auto) 0.5 Monocytes # (Auto) 1.4 Eosinophils # (Auto) 0.0 Basophils # (Auto) 0.0 CBC Comment DIFF FINAL Differential Comment Blood Urea Nitrogen 7 Creatinine 0.48 Random Glucose 105 Calcium Level 7.8 Magnesium Level 2.0 Sodium Level 137 Potassium Level 3.1 Chloride Level 101 Carbon Dioxide Level 29.1 Anion Gap 7 Estimat Glomerular Filtration Rate 134 Date/Time Source Procedure Growth Status 12/17/17 20:05 Blood Peripheral Aerobic Blood Culture - Final NO GROWTH IN 5 DAYS Complete 12/17/17 20:05 Blood Peripheral Anaerobic Blood Culture - Final NO GROWTH IN 5 DAYS Complete 12/17/17 18:32 Urine Clean Catch Urine Culture - Final 10-50,000 CFU/ML MIXED JATINDER... Complete Radiology Last 48 hours Impressions Chest X-Ray 12/17/17 1944 Signed Impressions: Service Date/Time: Sunday, December 17, 2017 20:14 - CONCLUSION: The lungs are clear. Sean Neves MD Abdomen/Pelvis CT 12/17/17 0000 Signed Impressions: Service Date/Time: Sunday, December 17, 2017 19:07 - CONCLUSION: 1. Abnormal appearance the biliary tree with intra-and extrahepatic biliary ductal dilatation and a 1.4 cm calcified stone near the neck of the gallbladder. 2. Focal free fluid in the left adnexal region. 3. Moderate amount of stool in the rectum and sigmoid without dilated loops of small bowel. 4. Focal opacity in the lateral right lung does have some air bronchograms suggesting a focal infiltrate. Sean Neves MD Cardiovascular: Regular Lungs: Clear Abdomen: Non-distended, Other (minimal epigastric tenderness ) Extremities: No edema A/P Assessment and Plan 57 year old female with abdominal pain/nausea/vomiting; Pneumonia; UTI; incidental finding of gallstone -S/p ERCP with stent placement -Liver enzymes normal -Will check tumor markers -YAHAIRA -Continue treatment for pneumonia and UTI -No acute surgical needs at this time Attending Note - Dr. Jackson Abdomen soft, mildly tender The exam, history, and the medical decision-making described in the above note were completed with the assistance of the mid-level provider. I reviewed and agree with the findings presented. I attest that I had a [id number] encounter with the patient on the same day, and personally performed and documented my assessment and findings in the medical record. Mirta GuerinP/Housekeeping Supervisor DESIGN PAINTER Dec 22, 2017 14:47 Pipe Jackson MD Dec 29, 2017 20:27
--- NOTE | 2017-12-22 15:29 | HHI.GIFU ---
Subjective Remarks Pt resting in bed. She says her pain is improving and she is eating " a little ". She is tender on exam. (Marina Palomo) Objective Vitals I&O Vital Signs Date Time Temp Pulse Resp B/P (MAP) Pulse Ox O2 Delivery O2 Flow Rate FiO2 12/22/17 12:00 96.8 89 18 147/97 (114) 92 12/22/17 09:11 94 Nasal Cannula 3.00 12/22/17 07:53 97.8 76 20 121/80 (94) 94 12/22/17 04:00 99.2 89 24 126/82 (97) 94 12/22/17 00:00 100.2 90 22 133/81 (98) 94 12/21/17 20:55 Room Air 12/21/17 20:55 88 12/21/17 20:00 100.1 93 24 139/86 (103) 91 12/21/17 19:57 95 Nasal Cannula 2.00 12/21/17 18:45 87 12/21/17 16:25 75 12/21/17 16:00 98.0 76 20 129/81 (97) 94 12/21/17 15:30 74 I/O 12/21/17 12/21/17 12/21/17 12/22/17 12/22/17 12/22/17 07:00 15:00 23:00 07:00 15:00 23:00 Intake Total 2506 ml Balance 2506 ml Intake Oral 1440 ml IV Total 1066 ml # Voids 13 # Bowel Movements 1 Laboratory Laboratory Tests Test 12/22/17 05:15 White Blood Count 12.8 Red Blood Count 4.08 Hemoglobin 11.8 Hematocrit 35.2 Mean Corpuscular Volume 86.4 Mean Corpuscular Hemoglobin 28.9 Mean Corpuscular Hemoglobin Concent 33.5 Red Cell Distribution Width 13.1 Platelet Count 121 Mean Platelet Volume 7.9 Neutrophils (%) (Auto) 84.9 Lymphocytes (%) (Auto) 4.2 Monocytes (%) (Auto) 10.7 Eosinophils (%) (Auto) 0.1 Basophils (%) (Auto) 0.1 Neutrophils # (Auto) 10.9 Lymphocytes # (Auto) 0.5 Monocytes # (Auto) 1.4 Eosinophils # (Auto) 0.0 Basophils # (Auto) 0.0 CBC Comment DIFF FINAL Differential Comment Blood Urea Nitrogen 7 Creatinine 0.48 Random Glucose 105 Calcium Level 7.8 Magnesium Level 2.0 Sodium Level 137 Potassium Level 3.1 Chloride Level 101 Carbon Dioxide Level 29.1 Anion Gap 7 Estimat Glomerular Filtration Rate 134 Date/Time Source Procedure Growth Status 12/17/17 20:05 Blood Peripheral Aerobic Blood Culture - Final NO GROWTH IN 5 DAYS Complete 12/17/17 20:05 Blood Peripheral Anaerobic Blood Culture - Final NO GROWTH IN 5 DAYS Complete 12/17/17 18:32 Urine Clean Catch Urine Culture - Final 10-50,000 CFU/ML MIXED JATINDER... Complete Imaging Last Impressions Chest X-Ray 12/21/17 0000 Signed Impressions: Service Date/Time: Thursday, December 21, 2017 08:10 - CONCLUSION: 1. Central vascular congestion with left lower lobe airspace disease and mild cardiomegaly. 2. Right-sided rib deformity characteristic of previous thoracotomy. Damon Yuen MD GI Procedure 12/19/17 0000 Signed Impressions: Service Date/Time: Tuesday, December 19, 2017 12:53 - CONCLUSION: ERCP as above. Miguel Smith MD Cholangiopancreatography MRI 12/18/17 0000 Signed Impressions: Service Date/Time: December 15:10 - CONCLUSION: 1. There is a gallstone in the base of the gallbladder. The gallbladder appears be somewhat dilated and there is thickening of the gallbladder wall with some nonspecific inflammatory changes in the mesenteric fat adjacent to the base of the gallbladder. Cholecystitis would be the primary consideration. 2. The common bile duct is dilated 1.3 cm. There is dilatation of the intrabiliary ducts. These findings would indicate obstruction. Recommend ERCP for further evaluation. Boby Pastor MD Abdomen/Pelvis CT 12/17/17 0000 Signed Impressions: Service Date/Time: Sunday, December 17, 2017 19:07 - CONCLUSION: 1. Abnormal appearance the biliary tree with intra-and extrahepatic biliary ductal dilatation and a 1.4 cm calcified stone near the neck of the gallbladder. 2. Focal free fluid in the left adnexal region. 3. Moderate amount of stool in the rectum and sigmoid without dilated loops of small bowel. 4. Focal opacity in the lateral right lung does have some air bronchograms suggesting a focal infiltrate. Sean Neves MD Physical Exam HEENT: PERRL; normocephalic; atraumatic; no jaundice. CHEST: wheezes CARDIAC: RRR ABDOMEN: mildly distended, diffuse TTP EXTREMITIES: No clubbing, cyanosis, or edema. SKIN: Normal; no rash; no jaundice. BUDGET ACCOUNTANT: No focal deficits; alert and oriented times three. (Marina Palomo) Assessment and Plan Plan ASSESSMENT - abd pain, abnormal imaging - unk etiology. recent onset abd pain, CT showed poss PNA, biliary ductal dilatation, stone in GB neck, moderate stool rectum and sigmoid. LFTs are WNL, does not appear obstructed. 12/22/17 s/p ERCP and stent placement, finding of graduat tapering distal CBD with upstream dilatation, benign appearance GS following, no acute surgical need at this time. tumor markers pending pt says pain is improving and is so far tolerating diet. she is still pretty tender on exam, seems distended. + BM this morning. PLAN - KUB - await CEA, CA 19-9 - YAHAIRA - Supportive care - Stent removal in 3 months pt seen by myself and Dr Casiano and this note is in his behalf (Marina Palomo) Physician Comments Agree with above assessment and plan. (Christine Casiano MD) Marina Palomo Dec 22, 2017 15:28 Christine Casiano MD Dec 22, 2017 15:48
--- NOTE | 2017-12-22 16:23 | RADRPT ---
EXAM DATE/TIME: 12/22/2017 16:02 [facility] COMPARISON: CT ABDOMEN & PELVIS W CONTRAST, December 17, 2017, 19:07. INDICATIONS : Distention MEDICAL HISTORY : Hypertension. Gastroesophageal reflux disease. SURGICAL HISTORY : Abdominal stent ENCOUNTER: Initial ACUITY: 2 weeks PAIN SCORE: 0/10 LOCATION: Abdomen FINDINGS: A single supine view the abdomen demonstrates mild gaseous distention of large bowel low transverse c olon and ascending colon. Air is seen within nondilated small bowel loops. Bone density is decreased. A biliary stent is present overlying the right upper quadrant. CONCLUSION: Mild gaseous distention of large bowel. Abelino Al MD on December 22, 2017 at 16:20 Board Certified Radiologist. This report was verified electronically.
[2017-12-22] MEDS: MORPHINE SULFATE 4 MG/ML INJ IV PUSH PRN (18:35)
[2017-12-22] MEDS ORDERED: IOHEXOL 350 MG/ML 10 ML VIAL (for RAD DIAG) IVCONTRAST ONE (19:04)
--- NOTE | 2017-12-22 19:21 | RADRPT ---
EXAM DATE/TIME: 12/22/2017 18:49 [place] COMPARISON: MRCP W/O CONTRAST, December 18, 2017, 15:10. GI LAB ERCP, December 19, 2017, 12:53. INDICATIONS : Shortness of breath. IV CONTRAST: 50 cc Omnipaque 350 (iohexol) IV RADIATION DOSE: 7.26 CTDIvol (mGy) MEDICAL HISTORY : Cardiovascular disease. Hypertension. Carcinoma, breast. COPD SURGICAL HISTORY : None. ENCOUNTER: Initial ACUITY: 1 day PAIN SCALE: 5/10 LOCATION: Bilateral chest TECHNIQUE: Volumetric scanning of the chest was performed using a pulmonary embolism protocol MIP images were re constructed. Using automated exposure control and adjustment of the mA and/or kV according to patien t size, radiation dose was kept as low as reasonably achievable to obtain optimal diagnostic quality images. DICOM format image data is available electronically for review and comparison. Follow-up recommendations for detected pulmonary nodules are based at a minimum on nodule size and pa tient risk factors according to Fleischner Society Guidelines. FINDINGS: PULMONARY ARTERIES: No filling defects are seen in the pulmonary arteries through the segmental level. Main and proximal right and left is of the pulmonary arteries are prominent. The main pulmonary artery measures approxi mately 4.2 cm across. LUNGS: Numerous scattered areas of mainly interstitial opacities of both lungs. There is dense consolidation /atelectasis of the bases and small bilateral pleural effusions. Thoracotomy changes are seen on the right. MEDIASTINUM: There is good visualization of the great vessels of the middle mediastinum. No evidence of mediastin al or hilar adenopathy/mass. Small pericardial effusion. MUSCULOSKELETAL: No acute bony abnormality. MISCELLANEOUS: Air is seen in the biliary tree presumably iatrogenic. Patient is status post recent ERCP with sphinc terotomy and stent placement. CONCLUSION: 1. No pulmonary embolus. 2. Distended proximal pulmonary arteries without significant right ventricular enlargement, probably pulmonic stenosis, less likely pulmonary hypertension. 3. Patchy interstitial opacities in both lungs that are most likely infectious or inflammatory. Inter lobular spread of tumor not completely excludable by this appearance. 4. Small bilateral pleural effusions. Tendon/compressive atelectasis of both bases. 5. Small pericardial effusion. Arcadio Ghosh MD on December 22, 2017 at 19:14 Board Certified Radiologist. This report was verified electronically.
[2017-12-22] MEDS: AZITHROMYCIN INJ 500 MG in SODIUM CHLOR 0.9% 250 ML INJ 250 ML IV SCH (20:29)
[2017-12-22] MEDS: ATORVASTATIN 40 MG TAB PO SCH (20:29)
[2017-12-22] MEDS ORDERED: PHARMACY ORDERED LAB ONE (21:45)
[2017-12-22 23:20] LABS: VANCOMYCIN TROUGH 9.2 MCG/ML (5.0-10.0)
[2017-12-23] VITALS (9 sets, daily range): BP systolic 130–144; BP diastolic 76–86; PULSE 76–95; RESP 18–21; TEMP 96.5–99.8; O2SAT 92–95
[2017-12-23] MEDS: MORPHINE SULFATE 4 MG/ML INJ IV PUSH PRN (00:35)
[2017-12-23] MEDS: PIPERACIL-TAZO 4.5 GM PREMIX 100 ML IV SCH ×4 (02:36→20:01)
[2017-12-23] MEDS: RESP: ALBUTEROL 2.5 MG/IPRATROPIUM 0.5 MG NEB (SCH) NEB ×4 (04:29→21:09)
[2017-12-23] MEDS: ACETAMINOPHEN/HYDROcodone 325 MG/7.5 MG TAB PO PRN ×5 (05:59→22:35)
[2017-12-23] MEDS: LEVOTHYROXINE SODIUM 75 MCG TAB PO SCH (06:00)
[2017-12-23 07:08] LABS: CARCINOEMBRYONIC ANTIGEN 8.1 NG/ML (0.2-5.0)
[2017-12-23] MEDS: PANTOPRAZOLE SOD 40 MG DELAYED RELEASE TAB PO SCH (07:46)
[2017-12-23] MEDS: ANASTROZOLE 1 MG TAB PO SCH (07:47)
[2017-12-23] MEDS: SODIUM CHLORIDE 0.9% FLUSH 10 ML FLUSH IV FLUSH SCH ×2 (07:47→20:02)
[2017-12-23] MEDS: DOCUSATE SODIUM 50 MG/SENNA 8.6 MG TAB PO SCH ×2 (07:47→20:02)
[2017-12-23] MEDS: ESCITALOPRAM OXALATE 20 MG TAB PO SCH (07:47)
[2017-12-23] MEDS: HEPARIN SODIUM - SQ 10,000 UNITS/ML VIAL SQ SCH ×2 (07:47→20:02)
[2017-12-23] MEDS: buPROPion HCL 150 MG SUSTAINED RELEASE TAB PO SCH ×2 (07:48→20:02)
[2017-12-23] MEDS: LISINOPRIL 5 MG TAB PO SCH (07:48)
[2017-12-23 08:06] LABS: CA 19-9 47.8 U/ML (0.0-35.0)
[2017-12-23] MEDS: VANCOMYCIN INJ 1,250 MG in SODIUM CHLOR 0.9% 250 ML INJ 250 ML IV SCH ×2 (09:14→22:36)
--- NOTE | 2017-12-23 12:38 | HHI.GIFU ---
Subjective Remarks Pt resting in bed (+) flatus Reports BM yesterday morning Denies nausea, vomiting Mild abdominal pain (Jayne Link) Objective Vitals I&O Vital Signs Date Time Temp Pulse Resp B/P (MAP) Pulse Ox O2 Delivery O2 Flow Rate FiO2 12/23/17 11:41 96.5 76 18 139/82 (101) 93 12/23/17 08:56 95 Nasal Cannula 3.00 12/23/17 07:55 Nasal Cannula 3.00 12/23/17 07:49 97.9 80 18 140/82 (101) 94 12/23/17 04:00 99.8 95 21 144/86 (105) 93 12/23/17 00:00 96.8 88 21 130/80 (97) 92 12/22/17 21:08 92 Nasal Cannula 3.00 12/22/17 20:00 98.1 84 21 149/87 (107) 94 12/22/17 20:00 89 12/22/17 19:25 Nasal Cannula 3.00 12/22/17 16:00 98.4 82 18 144/91 (108) 93 I/O 12/22/17 12/22/17 12/22/17 12/23/17 12/23/17 12/23/17 06:59 14:59 22:59 06:59 14:59 22:59 Intake Total 720 ml 760 ml 360 ml Balance 720 ml 760 ml 360 ml Intake Oral 720 ml 760 ml 360 ml # Voids 3 2 2 # Bowel Movements 1 Laboratory Laboratory Tests Test 12/22/17 15:24 12/22/17 21:45 12/23/17 04:40 D-Dimer Quantitative (PE/DVT) 3.50 Lactic Acid Level 0.7 Thyroid Stimulating Hormone 3rd Gen 1.940 Vancomycin Level Trough 9.2 Carcinoembryonic Antigen 8.1 CA 19-9 Antigen 47.8 Date/Time Source Procedure Growth Status 12/22/17 15:24 Blood Peripheral Aerobic Blood Culture - Preliminary NO GROWTH IN 1 DAY Resulted 12/22/17 15:24 Blood Peripheral Anaerobic Blood Culture - Preliminary NO GROWTH IN 1 DAY Resulted 12/22/17 15:10 Urine Clean Catch Legionella Antigen - Final PRESUMPTIVE NEGATIVE FOR LEGIONELLA P... Complete 12/22/17 15:10 Urine Clean Catch Streptococcus pneumoniae Antigen (M - Final PRESUMPTIVE NEGATIVE FOR STREPTOCOCCU... Complete Imaging Last Impressions CT Angiography 12/22/17 0000 Signed Impressions: Service Date/Time: Friday, December 22, 2017 18:49 - CONCLUSION: 1. No pulmonary embolus. 2. Distended proximal pulmonary arteries without significant right ventricular enlargement, probably pulmonic stenosis, less likely pulmonary hypertension. 3. Patchy interstitial opacities in both lungs that are most likely infectious or inflammatory. Interlobular spread of tumor not completely excludable by this appearance. 4. Small bilateral pleural effusions. Tendon/compressive atelectasis of both bases. 5. Small pericardial effusion. Arcadio Ghosh MD Abdomen X-Ray 12/22/17 0000 Signed Impressions: Service Date/Time: Friday, December 22, 2017 16:02 - CONCLUSION: Mild gaseous distention of large bowel. Abelino Al MD Chest X-Ray 12/21/17 0000 Signed Impressions: Service Date/Time: Thursday, December 21, 2017 08:10 - CONCLUSION: 1. Central vascular congestion with left lower lobe airspace disease and mild cardiomegaly. 2. Right-sided rib deformity characteristic of previous thoracotomy. Damon Yuen MD GI Procedure 12/19/17 0000 Signed Impressions: Service Date/Time: Tuesday, December 19, 2017 12:53 - CONCLUSION: ERCP as above. Miguel Smith MD Cholangiopancreatography MRI 12/18/17 0000 Signed Impressions: Service Date/Time: December 15:10 - CONCLUSION: 1. There is a gallstone in the base of the gallbladder. The gallbladder appears be somewhat dilated and there is thickening of the gallbladder wall with some nonspecific inflammatory changes in the mesenteric fat adjacent to the base of the gallbladder. Cholecystitis would be the primary consideration. 2. The common bile duct is dilated 1.3 cm. There is dilatation of the intrabiliary ducts. These findings would indicate obstruction. Recommend ERCP for further evaluation. Boby Pastor MD Abdomen/Pelvis CT 12/17/17 0000 Signed Impressions: Service Date/Time: Sunday, December 17, 2017 19:07 - CONCLUSION: 1. Abnormal appearance the biliary tree with intra-and extrahepatic biliary ductal dilatation and a 1.4 cm calcified stone near the neck of the gallbladder. 2. Focal free fluid in the left adnexal region. 3. Moderate amount of stool in the rectum and sigmoid without dilated loops of small bowel. 4. Focal opacity in the lateral right lung does have some air bronchograms suggesting a focal infiltrate. Sean Neves MD Physical Exam HEENT: Normocephalic; atraumatic; no jaundice. CHEST: End expiratory wheezing CARDIAC: RRR ABDOMEN: mildly distended, soft, mild diffuse tenderness, bowel sounds active EXTREMITIES: No clubbing, cyanosis, or edema. SKIN: Normal; no rash; no jaundice. EDUCATION ANALYST: No focal deficits; alert and oriented times three. (Jayne Link) Assessment and Plan Plan ASSESSMENT - abd pain, abnormal imaging - unk etiology. recent onset abd pain, CT showed poss PNA, biliary ductal dilatation, stone in GB neck, moderate stool rectum and sigmoid. LFTs are WNL, does not appear obstructed. 12/22/17 s/p ERCP and stent placement, finding of gradual tapering distal CBD with upstream dilatation, benign appearance GS following, no acute surgical need at this time. tumor markers pending pt says pain is improving and is so far tolerating diet. she is still pretty tender on exam, seems distended. + BM this morning. (12/23) --> Pt reports (+) flatus. BM yesterday. Denies nausea, vomiting. KUB noted --> Mild gaseous distention of large bowel. Refused Sagrario-colace. this morning. Tumor markers back - CEA 8.1 CA 19-9 47.8. Unclear significance. PLAN - YAHAIRA - Bowel regimen - Supportive care - Stent removal in 3 months - GI will sign off, please reconsult as needed - Have pt follow up in office 1-2 weeks after discharge Pt has been seen and examined by myself and Dr. Casiano and this note is written on his behalf (Jayne Link) Physician Comments Nothing much to add from GI point of view. Will need stent removal within 3 months as outpatient. Please notify us if needed again. (Christine Casiano MD) Jayne Link Dec 23, 2017 12:38 Christine Casiano MD Dec 23, 2017 13:42
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
--- NOTE | 2017-12-23 18:11 | ECHRPT ---
Indication: Shortness of breath CONCLUSIONS The left ventricular systolic function is normal with an estimated ejection fraction in the range of 55-60%. Wall thickness is measured at the upper limits of normal. Normal left ventricular size. There is moderate tricuspid valve regurgitation. The estimated pulmonary arterial pressure is 49 mmHg. Trivial pericardial effusion. BP: 140 / 82 HR: 80 Rhythm: Sinus MEASUREMENTS (Male / Female) Normal Values Technical Quality:Good 2D ECHO LV Diastolic Diameter PLAX 5.5 cm 4.2 - 5.9 / 3.9 - 5.3 cm LV Systolic Diameter PLAX 4.1 cm IVS Diastolic Thickness 1.1 cm 0.6 - 1.0 / 0.6 - 0.9 cm LVPW Diastolic Thickness 1.1 cm 0.6 - 1.0 / 0.6 - 0.9 cm LV Relative Wall Thickness 0.4 LVOT Diameter 2.4 cm M-MODE Aortic Root Diameter MM 3.6 cm LA Systolic Diameter MM 4.4 cm LA Ao Ratio MM 1.2 AV Cusp Separation MM 2.3 cm DOPPLER AV Peak Velocity 139.0 cm/s AV Peak Gradient 7.7 mmHg LVOT Peak Velocity 101.0 cm/s LVOT Peak Gradient 4.1 mmHg AV Area Cont Eq pk 3.3 cm MR Peak Velocity 495.0 cm/s MR Peak Gradient 98.0 mmHg Mitral E Point Velocity 112.0 cm/s Mitral A Point Velocity 111.0 cm/s Mitral E to A Ratio 1.0 LV E' Lateral Velocity 9.4 cm/s Mitral E to LV E' Lateral Ratio 12.0 LV E' Septal Velocity 9.0 cm/s Mitral E to LV E' Septal Ratio 12.5 TR Peak Velocity 313.0 cm/s TR Peak Gradient 39.2 mmHg Right Atrial Pressure 10.0 mmHg Pulmonary Artery Systolic Pressu 49.2 mmHg Right Ventricular Systolic Press 49.2 mmHg PV Peak Velocity 130.0 cm/s PV Peak Gradient 6.8 mmHg FINDINGS LEFT VENTRICLE The left ventricular systolic function is normal with an estimated ejection fraction in the range of 55-60%. Wall thickness is measured at the upper limits of normal. Normal left ventricular size. RIGHT VENTRICLE Normal right ventricular size and systolic function. LEFT ATRIUM The left atrial size is normal. RIGHT ATRIUM The right atrial size is normal. ATRIAL SEPTUM Normal atrial septal thickness without atrial level shunting by limited color doppler interrogation. AORTA The aortic root and proximal ascending aorta are normal in size on limited imaging. MITRAL VALVE Structurally normal mitral valve. No mitral valve stenosis or regurgitation. AORTIC VALVE Trileaflet aortic valve. No aortic valve stenosis or regurgitation. TRICUSPID VALVE There is moderate tricuspid valve regurgitation. The estimated pulmonary arterial pressure is 49.2 mmHg. PULMONARY VALVE No pulmonary valve regurgitation or stenosis. VESSELS The inferior vena cava is normal in size. PERICARDIUM Trivial pericardial effusion. Arturo Dubon MD, FACC (Electronically Signed) Final Date:23 December 2017 18:10
[2017-12-23] MEDS: clonazePAM 0.5 MG TAB PO PRN ×2 (18:18→22:35)
[2017-12-23] MEDS: AZITHROMYCIN INJ 500 MG in SODIUM CHLOR 0.9% 250 ML INJ 250 ML IV SCH (20:01)
[2017-12-23] MEDS: ATORVASTATIN 40 MG TAB PO SCH (20:02)
[2017-12-23] MEDS ORDERED: PHARMACY ORDERED LAB ONE (21:45)
[2017-12-24 00:14] VITALS: BP 130/78; PULSE 78; RESP 19; TEMP 97.5; O2SAT 94
[2017-12-24] MEDS: PIPERACIL-TAZO 4.5 GM PREMIX 100 ML IV SCH ×3 (02:04→14:00)
[2017-12-24] MEDS: RESP: ALBUTEROL 2.5 MG/IPRATROPIUM 0.5 MG NEB (SCH) NEB (03:56)
[2017-12-24 03:58] VITALS: O2SAT 94
[2017-12-24 04:40] VITALS: BP 115/79; PULSE 75; RESP 19; TEMP 96.7; O2SAT 93
[2017-12-24] MEDS: ACETAMINOPHEN/HYDROcodone 325 MG/7.5 MG TAB PO PRN ×2 (05:41→15:37)
[2017-12-24] MEDS: LEVOTHYROXINE SODIUM 75 MCG TAB PO SCH (05:41)
[2017-12-24] MEDS: fentaNYL 75 MCG/HR PATCH T-DERMAL SCH (05:43)
[2017-12-24] MEDS: REMOVE OLD PATCH-FENTANYL T-DERMAL SCH (05:43)
[2017-12-24 08:00] VITALS: BP 122/78; PULSE 79; RESP 18; TEMP 97.2; O2SAT 94
[2017-12-24] MEDS: VANCOMYCIN INJ 1,250 MG in SODIUM CHLOR 0.9% 250 ML INJ 250 ML IV SCH (08:24)
[2017-12-24] MEDS: HEPARIN SODIUM - SQ 10,000 UNITS/ML VIAL SQ SCH (08:24)
[2017-12-24] MEDS: ANASTROZOLE 1 MG TAB PO SCH (08:25)
[2017-12-24] MEDS: LISINOPRIL 5 MG TAB PO SCH (08:26)
[2017-12-24] MEDS: SODIUM CHLORIDE 0.9% FLUSH 10 ML FLUSH IV FLUSH SCH (08:26)
[2017-12-24] MEDS: buPROPion HCL 150 MG SUSTAINED RELEASE TAB PO SCH (08:26)
[2017-12-24] MEDS: ESCITALOPRAM OXALATE 20 MG TAB PO SCH (08:26)
[2017-12-24] MEDS: PANTOPRAZOLE SOD 40 MG DELAYED RELEASE TAB PO SCH (08:26)
[2017-12-24] MEDS: DOCUSATE SODIUM 50 MG/SENNA 8.6 MG TAB PO SCH (08:26)
[2017-12-24] MEDS ORDERED: METR-1 PO (11:12)
[2017-12-24] MEDS ORDERED: HYDR-3516 PO (11:12)
--- NOTE | 2017-12-24 11:14 | HHI.FF ---
Face to Face Verification Diagnosis: (1) Right lower lobe pneumonia (2) Sepsis (3) Common bile duct stone (4) Urinary tract infection (5) Abdominal pain (6) Upper GI bleed Physical Therapy Order: Evaluate and Treat Occupational Therapy Order: Evaluate and Treat Home Health Nursing Order: Medical education Nursing assessment with vital signs I have seen patient Rhea Greene on 12/24/17. My clinical findings support the need for the requested home health care services because: Patient has SOB I certify that my clinical findings support that this patient is homebound because: Post-op weakness Unsafe to leave home unassisted Yara Brian MD Dec 24, 2017 11:14
[2017-12-24] MEDS ORDERED: LEVA500T33 PO (11:18)
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
[2017-12-24 12:00] VITALS: BP 143/84; PULSE 78; RESP 18; TEMP 96.9; O2SAT 94
== END 2017-12-24 16:32 | disposition home health service (06) | DRG 871 ==
LOC: PHED 17:35 → PHEDA 19:53 → NEPFCDU 23:13 → N06B 12-19 16:05
PROVIDERS: ADMIT Hospitalist; ATTEND Hospitalist
PROC: BF101ZZ Fluoroscopy of Bile Ducts using Low Osmolar Contrast (ICD-10-PCS; 2017-12-19)
PROC: 0F798DZ Dilation of Common Bile Duct with Intraluminal Device, Via Natural or Artificial Opening Endoscopic (ICD-10-PCS; principal; 2017-12-19 12:28)
DX: A41.9 Sepsis, unspecified organism (principal); J18.9 Pneumonia, unspecified organism; N39.0 Urinary tract infection, site not specified; J44.0 Chronic obstructive pulmonary disease with (acute) lower respiratory infection; K80.65 Calculus of gallbladder and bile duct with chronic cholecystitis with obstruction; I10 Essential (primary) hypertension; F32.9 Major depressive disorder, single episode, unspecified; F41.9 Anxiety disorder, unspecified; F17.210 Nicotine dependence, cigarettes, uncomplicated; G89.29 Other chronic pain; R65.20 Severe sepsis without septic shock; M54.9 Dorsalgia, unspecified; K21.9 Gastro-esophageal reflux disease without esophagitis; E03.9 Hypothyroidism, unspecified; K59.03 Drug induced constipation; T40.605A Adverse effect of unspecified narcotics, initial encounter; G89.21 Chronic pain due to trauma; R09.02 Hypoxemia; R01.1 Cardiac murmur, unspecified; E78.5 Hyperlipidemia, unspecified; R00.0 Tachycardia, unspecified; Z85.3 Personal history of malignant neoplasm of breast; Z92.21 Personal history of antineoplastic chemotherapy; Z79.891 Long term (current) use of opiate analgesic
CPT/HCPCS: 36600; 71045; 71046; 71275; 74018; 74177; 74181; 74330; 76377; 76937; 80048; 80053; 80202; 81001; 82378; 82805; 83605; 83735; 84443; 85007; 85025; 85027; 85379; 85610; 85730; 86301; 87040; 87086; 87449; 93005; 93306; 94150; 94618; 94640; 94664; 96361; 96374; C1769; C2625; J0456; J1170; J1644; J2060; J2270; J2405; J2543; J3370; J3475; J3480; J7050; J7120; Q9967